=== PATIENT | male | born 1955 | race Caucasian/White ===

== ENCOUNTER 2024-11-18 07:52 | Inpatient (IN) ==
--- NOTE | 2024-11-18 08:23 | XRay Report ---
XR chest 1V portable CLINICAL HISTORY: neuro deficit, acute stroke suspected COMPARISON STUDY: None FINDINGS: There is mild cardiomegaly with pulmonary vascular congestion. Inspiration is shallow. Ther e is stranding opacity in the lung bases. No lobar consolidation, pleural effusion, or pneumothorax. IMPRESSION: 1. Mild CHF. 2. Likely atelectasis in the lung bases. Follow-up as clinically indicated. ACT 112: Negative or not required by law. Electronically signed by: Noah Mason M.D. 11/18/2024 8:22 AM
[2024-11-18 08:44] LABS: Alanine Aminotransferase 20 U/L (7-52); Albumin Globulin Ratio 1.5 (0.9-2); Albumin Level 4.6 gm/dl (3.4-5.0); Alkaline Phosphatase 98 U/L (34-104); Anion Gap 2 (3-11); Aspartate Aminotransferase 25 U/L (13-39); BUN Creatinine Ratio 19.1 (10-20); Bilirubin,Total 0.5 mg/dl (0.2-1.0); Blood Urea Nitrogen 25 mg/dl (6-23); Calcium 9.6 mg/dl (8.6-10.3); Carbon Dioxide 42 mmol/L (21-32); Chloride 101 mmol/L (98-107); Globulin 3.1 gm/dl (2.5-4.0); Glucose 182 mg/dl (70-99(Fasting)); Magnesium 2.4 mg/dl (1.7-2.4); Potassium 4.9 mmol/L (3.5-5.1); Sodium 145 mmol/L (136-145); Total Protein 7.7 gm/dl (6.0-8.3)
[2024-11-18 08:57] LABS: Thyroid Stimulating Hormone 2.402 uIu/ml (0.300-4.500); Troponin I High Sensitivity 62.1 pg/ml (0-20)
--- NOTE | 2024-11-18 09:22 | CT Scan Report ---
CT ANGIOGRAM OF THE CHEST CLINICAL HISTORY: Shortness of breath. Evaluate for pulmonary embolus. COMPARISON STUDY: Chest radiograph performed earlier today. TECHNIQUE: Following the IV administration of 112 cc of Optiray 320, CT angiogram of the chest was pe rformed from the upper abdomen to the thoracic inlet utilizing the pulmonary embolus protocol. Images are reviewed in the axial, sagittal, and coronal planes. 3-D MIPS images are created and assessed. I V contrast was administered without complication. A dose lowering technique was utilized adhering to the principles of ALARA. CT DOSE: 1391.34 mGy.cm FINDINGS: The tip of the endotracheal tube is 2.2 cm above the brenda. Tip of nasogastric tube is wit hin the distal body of the stomach. No pulmonary emboli are identified although segmental and subsegm ental pulmonary arteries are suboptimally assessed on this exam. There is no thoracic aortic dissecti on. The heart is moderately enlarged and there is moderate coronary artery calcification. No pericard ial effusion. No thoracic lymphadenopathy. There is no pneumothorax or pleural effusion. Extensive bi lateral lower lobe airspace opacities are greater on the right. There is associated volume loss. Ther e are also mild groundglass opacities within the upper lobes. Central airways are patent. Visualized portions of the upper abdomen are unremarkable IMPRESSION: 1. No pulmonary emboli identified although segmental and subsegmental pulmonary arteries suboptimally assessed. 2. Well-positioned endotracheal and nasogastric tubes. 3. Extensive bilateral lower lobe airspace opacities with volume loss which favor pneumonia/aspiratio n pneumonitis although atelectasis could appear similar. 4. Scattered groundglass opacities. These may represent pneumonia or alveolar pulmonary edema. 5. Moderate cardiomegaly and coronary artery calcification. ACT 112: Negative or not required by law. Electronically signed by: Fernandez Taylor M.D. 11/18/2024 9:20 AM
--- NOTE | 2024-11-18 09:29 | CT Scan Report ---
CT head/brain wo con CLINICAL HISTORY: 69 years-old Male with neuro deficit, acute stroke suspected. Acute stroke like sy mptoms TECHNIQUE: Multiple axial CT images of the head were obtained without contrast. A dose lowering tech nique was utilized adhering to the principles of ALARA. COMPARISON: None FINDINGS: No acute intracranial hemorrhage, midline shift, intracranial mass, hydrocephalus, territorial ischem ia or abnormal extra-axial collection. Involutional changes with mild ill-defined white matter hypode nsities The calvarium is intact. Indeterminate 10 mm lucent focus of the left parietal calvarium on image 27 series 3. Endotracheal tube with nasopharyngeal secretions. Moderate secretions within the nasal turb inates. 2.5 cm focus of polypoid mucosal thickening present within the dependent right maxillary sinu s. IMPRESSION: No acute intracranial abnormality identified. ACT 112: Negative or not required by law. The above report was generated using voice recognition software. It may contain grammatical, syntax o r spelling errors. Electronically signed by: Messi Burciaga M.D. 11/18/2024 9:27 AM
--- NOTE | 2024-11-18 09:31 | Critical Care Consultation ---
Date of Consultation November 18, 2024 Assessment & Plan (1) Acute metabolic encephalopathy: (2) Multifocal pneumonia: (3) Acute respiratory failure with hypoxia and hypercapnia: (4) Class 2 obesity without serious comorbidity with body mass index (BMI) of 38.0 to 38.9 in adult: (5) Smokeless tobacco use: (6) Prediabetes: (7) Dyslipidemia: Plan Reason Critically Ill: 69-year-old male was brought in by his mom to the hospital because of altered mental status. 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/OHS, prediabetes Neuro - [facility]: Unable to assess --Metabolic encephalopathy Likely secondary to hypercapnia TSH within normal limits Sodium, calcium, ammonia, blood sugar within normal limit CT head 11/18/2024: Negative for any acute intracranial abnormality Cardiac - 2D echo 11/18/2024: EF 55-60%, mild TR, borderline concentric LVH, RVSP 30-40 mmHg, grade 1 diastolic dysfunction -- Elevated troponin Likely type II WI Continue to trend EKG 11/18/2024 7:58 AM: Sinus tachycardia with PVCs, normal axis, no ST-T wave changes appreciated --Dyslipidemia Will benefit from a statin at home Respiratory - CTA chest 11/18/2024 personally reviewed: Motion degraded study Minimal centrilobular emphysema in the upper lobes Atelectasis appreciated bilateral lower lobes No pulmonary emboli Cardiomegaly No significant mediastinal lymphadenopathy -- VDRF Likely secondary to acute hypercapnic hypoxic respiratory failure Hypoxia is likely from multifocal lower lobe pneumonia Hypercapnia from probable ANA/OHS Continue with ventilatory support Keep RASS -1 Daily sedation holidays and SBT's Procalcitonin 0.05 Respiratory BioFire negative for everything --ANA/OHS Recommend outpatient polysomnography --Metabolic alkalosis Likely compensation to chronic respiratory acidosis GI - -- No acute issues RENAL/LYTES - -- JUAN A on CKD Monitor BUN/creatinine Avoid nephrotoxic medication ENDO - -- ICU hypoglycemia protocol HEME - -- Normocytic anemia Monitor H&H ID - -- Multifocal pneumonia Possible aspiration Procalcitonin 0.05, respiratory BioFire negative for everything on 11/18/2024 Nasal MRSA negative Follow-up sputum culture, continue with antibiotics --Prophylaxis VTE: Lovenox GI: Pepcid Lines: Peripheral Diet: N.p.o. Plan: Strict ins and outs Will give Zosyn and doxycycline for multifocal pneumonia Try to keep O2 saturation between 90-92% I do think patient is going to benefit from AVAPS machine on discharge given the severe hypercapnia Dedicated outpatient polysomnography. Follow-up sputum culture Patient's condition was discussed with patient's mother as well as sister at bedside Repeat ABG in a.m. I have personally spent 63 minutes of critical care time in the direct management of this patient. This is a life/limb threatening event. This includes time spent evaluating patient, direct bedside care, chart review, placing orders, interpretation of diagnostic studies, discussion with consultants, patient, and family members, as well as other required patient management activities. This time is exclusive of all separately billable procedures, and teaching time and separate from and in addition to any other critical care service time. History of Present Illness History of Present Illness 69-year-old male was brought in by his mom to the hospital because of altered mental status Past medical history: Obesity, probable ANA/OHS, prediabetes Patient was intubated in the ER and sent to the ICU for further management Patient was on 20 of propofol at the time of examination he was breathing with the vent. His initial respiratory rate was 22 his repeat ABG showed that he was alkalotic Respirate was decreased to 18 and I decreased it to 15. His saturation was 99% on 50% FiO2, I went down to 40%. Patient's sister as well as mother were in the room. History was obtained from them as well as the previous chart Patient has not been doing well since her last 3-4 days. He was getting more drowsy during the day and dozing off very easily. No subjective fever or chills as per the mother. No dysuria or diarrhea No unusual headache or blurry vision. Social history: Lifetime non-smoker, does chew tobacco. Allergies Allergy/AdvReac Type Severity Reaction Status Date / Time No Known Allergies Allergy Unverified 11/18/24 06:57 Home Medications Medication Instructions Recorded Confirmed Type No Known Home Medications 09/10/24 11/18/24 History Patient History Medical History Subconjunctival hemorrhage Surgical History S/P lymph node biopsy S/P hernia repair Family History (Updated 11/18/24 @ 11:07 by Kirk Gray MD) Mother Diabetes Breast cancer Lymphoma Sister Diabetes Father Thyroid condition Coronary heart disease Denies family history of Ovarian cancer Prostate cancer Myocardial infarction Colorectal cancer Social History (Updated 11/18/24 @ 11:08 by Kirk Gray MD) Smoking Status: Unknown if ever smoked Tobacco Type: Smokeless Tobacco (Dip or Chew) Age Started Using Tobacco: 25; Second Hand Exposure: No; Do You Dip or Chew Tobacco: Yes; Hx Alcohol Use: No Hx Substance Use: No Preferred Language: Macedonian Communication Ability: Effective Visual Impairment: No Limitations Hearing Ability: Normal Handkerchief Presser Required: No Beliefs That Will Affect Care: None marital status: Single Current Living Situation: Parent Current Living Situation Comment: lives with mother current occupational status: other 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 [employer], 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 [employer] How many Children do You have: 0 Feels Safe at Home: Yes and Hesitant to Answer Childhood Exposure to Second-Hand Smoke: Yes Diet: regular Dental Care, Regularly: No Physical Activity Frequency: Does not Exercise Seatbelt Use: always Sunscreen Use: No Assistive Devices: Glasses Review of Systems 2 Review of Systems: All systems reviewed & are unremarkable except as noted in HPI & below Physical Exam 2 Physical Exam: Constitutional: No acute distress HEENT: Sluggish pupillary response bilaterally Respiratory system: Decreased air entry bilaterally, no wheeze, no rhonchi, positive crackles bilateral lower lobe CVS: S1-S2 positive, no murmurs or gallops Abdomen: Soft, nontender, nondistended, positive bowel sounds x4, obese Extremities: +2 pulses bilaterally radialis/ dorsalis pedis, no cyanosis, minimal pitting edema bilateral lower extremity Neuro: Sedated, breathing with vent, moving extremities to pain Psych: Unable to assess G/U: Positive Carrion Skin: no rashes, warm and dry Lymphatic: no cervical or axillary lymphadenopathy Results & Data Results & Data Vital Signs (Past 12 Hours) Vital Signs Temp Pulse Resp BP Pulse Ox 11/18/24 09:00 104 H 26 H 100 11/18/24 08:35 187/123 H 11/18/24 08:33 124 H 26 H 100 11/18/24 08:30 135 H 26 H 100 11/18/24 08:30 176/122 H 11/18/24 08:27 135 H 28 H 100 11/18/24 08:25 124/82 11/18/24 08:15 195/101 H 11/18/24 08:12 110 H 98 11/18/24 08:05 174/94 H 11/18/24 08:03 110 H 96 11/18/24 08:00 171/87 H 11/18/24 08:00 171/87 H 11/18/24 08:00 109 H 94 11/18/24 07:54 37 C Laboratory Results 11/18/24 08:09 11/18/24 08:09 Coding Level of Care Code 40161 CRITICAL CARE 1ST 30-74M Diagnoses Acute metabolic encephalopathy G93.41 Multifocal pneumonia J18.9 Acute respiratory failure with hypoxia and hypercapnia J96.01; J96.02 Class 2 obesity without serious comorbidity with body mass index (BMI) of 38.0 to 38.9 in adult E66.9; Z68.38 Smokeless tobacco use Z72.0 Prediabetes R73.03 Dyslipidemia E78.5
--- NOTE | 2024-11-18 09:37 | Emergency Department Note ---
History of Present Illness General Chief complaint: Respiratory Distress Stated complaint: RESP. DISTRESS Time Seen by Provider: 11/18/24 07:59 Source: EMS Mode of arrival: EMS Limitations: clinical acuity History of Present Illness Patient is a 69-year-old male who presents from primary care office in acute respiratory distress. According to EMS oxygen level was 40% on room air when they arrived. Patient was placed on a nonrebreather with minimal improvement to 60 to 70%. Patient was following commands per EMS however currently he is not responding to painful stimuli. Blood glucose level within normal limits. Unknown last known well. No reported trauma or head injury. Home Medications Medication Instructions Recorded Confirmed Type No Known Home Medications 09/10/24 11/18/24 History Allergies Allergy/AdvReac Type Severity Reaction Status Date / Time No Known Allergies Allergy Unverified 11/18/24 06:57 Past Med/Surg History Problem List (Updated 11/18/24 @ 09:48 by Oli Singh MD) Acute hypercapnic respiratory failure (Acute) Class 2 obesity without serious comorbidity with body mass index (BMI) of 38.0 to 38.9 in adult Smokeless tobacco use Prediabetes Medical History (Updated 11/18/24 @ 09:48 by Oli Singh MD) Subconjunctival hemorrhage Surgical History S/P lymph node biopsy S/P hernia repair Family History Mother Diabetes Breast cancer Sister Diabetes Father Thyroid condition Coronary heart disease Denies family history of Ovarian cancer Prostate cancer Myocardial infarction Colorectal cancer Social History (Updated 09/10/24 @ 08:53 by CARLOS A Barrett) Smoking Status: Unknown if ever smoked Tobacco Type: Smokeless Tobacco (Dip or Chew) Age Started Using Tobacco: 25; Second Hand Exposure: No; Do You Dip or Chew Tobacco: Yes (can lasts 1-3 days, has cut back); Hx Alcohol Use: No Hx Substance Use: No Preferred Language: French Communication Ability: Effective Visual Impairment: No Limitations Hearing Ability: Normal User Experience Designer Required: No marital status: Single Current Living Situation: Family current occupational status: employed and retired 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 [employer] Feels Safe at Home: Yes and Hesitant to Answer Childhood Exposure to Second-Hand Smoke: Yes Diet: regular Dental Care, Regularly: No Physical Activity Frequency: Does not Exercise Seatbelt Use: always Sunscreen Use: No Assistive Devices: Glasses Review of Systems Unable to obtain ROS secondary to decreased LOC Physical Exam Vital Signs Vital Signs - 24 hr 11/18/24 07:54 11/18/24 08:00 11/18/24 08:00 Temperature 37 C Temperature Source Oral Pulse Rate 109 H Pulse Rate from SpO2 Sensor 109 H Respiratory Rate Respiratory Effort / Characteristics Respiratory Depth Respiratory Pattern Blood Pressure 171/87 H Blood Pressure Mean 130 Pulse Oximetry 94 Fraction of Inspired Oxygen Sepsis Recent Fever Within 48 Hours Yes Sepsis New/Unexplained Change in Mental Status Yes Sepsis Action Taken by Nursing No Action Required End-Tidal CO2 11/18/24 08:00 11/18/24 08:03 11/18/24 08:05 Temperature Temperature Source Pulse Rate 110 H Pulse Rate from SpO2 Sensor 111 H Respiratory Rate Respiratory Effort / Characteristics Respiratory Depth Respiratory Pattern Blood Pressure 171/87 H 174/94 H Blood Pressure Mean 130 133 Pulse Oximetry 96 Fraction of Inspired Oxygen Sepsis Recent Fever Within 48 Hours Sepsis New/Unexplained Change in Mental Status Sepsis Action Taken by Nursing End-Tidal CO2 11/18/24 08:12 11/18/24 08:15 11/18/24 08:25 Temperature Temperature Source Pulse Rate 110 H Pulse Rate from SpO2 Sensor 111 H Respiratory Rate Respiratory Effort / Characteristics Respiratory Depth Respiratory Pattern Blood Pressure 195/101 H 124/82 Blood Pressure Mean 141 101 Pulse Oximetry 98 Fraction of Inspired Oxygen Sepsis Recent Fever Within 48 Hours Sepsis New/Unexplained Change in Mental Status Sepsis Action Taken by Nursing End-Tidal CO2 11/18/24 08:27 11/18/24 08:30 11/18/24 08:30 Temperature Temperature Source Pulse Rate 135 H 135 H Pulse Rate from SpO2 Sensor 135 H 134 H Respiratory Rate 28 H 26 H Respiratory Effort / Characteristics Respiratory Depth Respiratory Pattern Blood Pressure 176/122 H Blood Pressure Mean 135 Pulse Oximetry 100 100 Fraction of Inspired Oxygen Sepsis Recent Fever Within 48 Hours Sepsis New/Unexplained Change in Mental Status Sepsis Action Taken by Nursing End-Tidal CO2 59 56 11/18/24 08:33 11/18/24 08:35 11/18/24 09:00 Temperature Temperature Source Pulse Rate 124 H 104 H Pulse Rate from SpO2 Sensor 125 H 104 H Respiratory Rate 26 H 26 H Respiratory Effort / Characteristics Respiratory Depth Respiratory Pattern Blood Pressure 187/123 H Blood Pressure Mean 139 Pulse Oximetry 100 100 Fraction of Inspired Oxygen Sepsis Recent Fever Within 48 Hours Sepsis New/Unexplained Change in Mental Status Sepsis Action Taken by Nursing End-Tidal CO2 52 42 11/18/24 09:16 11/18/24 09:34 Temperature Temperature Source Pulse Rate Pulse Rate from SpO2 Sensor Respiratory Rate Respiratory Effort / Characteristics Non-Labored Spontaneous Respiratory Depth Normal Respiratory Pattern Regular Blood Pressure Blood Pressure Mean Pulse Oximetry Fraction of Inspired Oxygen 100 Sepsis Recent Fever Within 48 Hours Sepsis New/Unexplained Change in Mental Status Sepsis Action Taken by Nursing End-Tidal CO2 See below Constitutional WD/WN, vitals as above Eyes PERRL, conjunctivae normal, anicteric sclerae ENMT external ear and nose normal, oropharynx normal Neck trachea midline, no thyromegaly Respiratory Bradypnea with shallow respirations, decreased air movement throughout all lung yang Cardiovascular RRR, no murmur, no edema Skin no rashes, warm and dry Neurologic GCS 6 Procedures Intubation Time out performed: Yes sedative: Etomidate Mg Given: 30 paralytic: Rocuronium Mg Given: 100 Laryngoscope: fiber optic video scope ET Tube Size: 7.5 ET Tube Uncuffed: Yes Tube Secured Location: lips Tube Placement Confirmation: visualized tube passing through cords Patient Tolerated Procedure: no complications Intubation Complications: none Course Administered Medications Propofol (Diprivan) 1,000 mg in 100 mls @ 14.592 mls/hr IV .[id number] [facility]; Protocol Stop: 11/21/24 08:29 Last Admin: 11/18/24 09:30 Dose: 20 mcg/kg/min, 14.6 mls/hr Documented By: JAMEY Co-signed By: NA Discontinued Medications Ioversol (Optiray 320 125ml) 112 ml IV ONCE ONE Stop: 11/18/24 08:40 Last Admin: 11/18/24 08:39 Dose: 112 ml Documented By: MYCHAL Miscellaneous (Rapid Sequence Induction Bag) Confirm Administered Dose 1 each N/A .STK-MED ONE Stop: 11/18/24 07:52 Last Admin: 11/18/24 08:26 Dose: 1 each Documented By: JAMEY Critical Care Time Critical Care Time: Yes Total Critical Care Time: 40 Medical Decision Making Differential Diagnosis Severe hypercapnia, metabolic encephalopathy, toxidrome, intracranial abnormality Medical Records Attestation: I reviewed the patient's medical records. Home Medications Current Medication List: was personally reviewed by me Laboratory Data Attestation: I reviewed the patient's lab results. 11/18/24 09:18 11/18/24 08:09 Lab Results 11/18/24 11/18/24 11/18/24 Range/Units 08:08 08:09 08:13 WBC Cancelled RBC Cancelled Hgb Cancelled Hct Cancelled MCV Cancelled MCH Cancelled MCHC Cancelled RDW Std Deviation Cancelled RDW Coeff of Ethel Cancelled Plt Count Cancelled MPV Cancelled Immature Gran % (Auto) Cancelled Neut % (Auto) Cancelled Lymph % (Auto) Cancelled [place] % (Auto) Cancelled Eos % (Auto) Cancelled Baso % (Auto) Cancelled Neut # (Auto) Cancelled Lymph # (Auto) Cancelled [place] # (Auto) Cancelled Eos # (Auto) Cancelled Baso # (Auto) Cancelled Immature Gran # (Auto) Cancelled Absolute Nucleated RBC Cancelled Nucleated RBC % (auto) Cancelled Neutrophils % (Manual) Cancelled Band Neutrophils % Cancelled Lymphocytes % (Manual) Cancelled Prolymphocyte % Cancelled Reactive Lymphs % (Man) Cancelled Monocytes % (Manual) Cancelled Eosinophils % (Manual) Cancelled Basophils % (Manual) Cancelled Metamyelocytes % (Man) Cancelled Myelocytes % (Man) Cancelled Promyelocytes % (Man) Cancelled Blast Cells % (Manual) Cancelled Plasma Cell % (Manual) Cancelled Other Cells % Cancelled Nucleated RBC % Cancelled Neutrophils # (Manual) Cancelled Band Neutrophils # Cancelled Total Absolute Neuts Cancelled Lymphocytes # (Manual) Cancelled Prolymphocyte # Cancelled Reactive Lymphs # Cancelled Total Abs Lymphocytes Cancelled Monocytes # (Manual) Cancelled Eosinophils # (Manual) Cancelled Basophils # (Manual) Cancelled Metamyelocytes # (Man) Cancelled Myelocytes # (Manual) Cancelled Promyelocytes # (Man) Cancelled Blast Cells # (Man) Cancelled Plasma Cell # (Manual) Cancelled Other Cells # Cancelled Nucleated RBCs # (Man) Cancelled Hypersegmented Neuts Cancelled Hyposegmented Neuts Cancelled Hypogranular Neuts Cancelled Large Granular Lymphs Cancelled # Lrg Granular Lymphs Cancelled Hairy Cells Cancelled Smudge Cells Cancelled Toxic Granulation Cancelled Toxic Vacuolation Cancelled Dohle Bodies Cancelled Fan Rods Cancelled Platelet Estimate Cancelled Hypogranular Platelets Cancelled Giant Platelets Cancelled Platelet Satelliting Cancelled RBC Morphology Cancelled Polychromasia Cancelled Hypochromasia Cancelled Poikilocytosis Cancelled Basophilic Stippling Cancelled Anisocytosis Cancelled Microcytosis Cancelled Macrocytosis Cancelled Spherocytes Cancelled Pappenheimer Bodies Cancelled Sickle Cells Cancelled Target Cells Cancelled Tear Drop Cells Cancelled Ovalocytes Cancelled Stomatocytes Cancelled Plasencia-Peggs Bodies Cancelled Echinocytes Cancelled Acanthocytes (Spur) Cancelled Rouleaux Cancelled RBC Agglutinates Cancelled Schistocytes Cancelled Sezary Cell Cancelled PT Cancelled INR Cancelled APTT Cancelled PTT Ratio Cancelled Sodium 145 (136-145) mmol/L Potassium 4.9 (3.5-5.1) mmol/L Chloride 101 (98-107) mmol/L Carbon Dioxide 42 H* (21-32) mmol/L Anion Gap 2 L (3-11) BUN 25 H (6-23) mg/dl Creatinine 1.31 (0.6-1.4) mg/dl Est Cr Clr Drug Dosing Not Reportable eGFR 59.66 BUN/Creatinine Ratio 19.1 (10-20) Glucose 182 H (70-99(Fasting)) mg/dl Lactate 1.0 (0.4-2.0) mmol/L Calcium 9.6 (8.6-10.3) mg/dl Magnesium 2.4 (1.7-2.4) mg/dl Total Bilirubin 0.5 (0.2-1.0) mg/dl AST 25 (13-39) U/L ALT 20 (7-52) U/L Alkaline Phosphatase 98 (34-104) U/L Troponin I High Sens 62.1 H* (0-20) pg/ml Total Protein 7.7 (6.0-8.3) gm/dl Albumin 4.6 (3.4-5.0) gm/dl Globulin 3.1 (2.5-4.0) gm/dl Albumin/Globulin Ratio 1.5 (0.9-2) TSH 2.402 (0.300-4.500) uIu/ml Blood Parasites ID Cancelled Blood Type O Negative Antibody Screen NEGATIVE Imaging Data Attestation: I personally reviewed and interpreted this imaging study as follows: My Impression: No acute cardiopulmonary process noted, poor inspiratory effort Radiologist's Impression: Chest X-Ray 11/18/24 08:02 XR chest 1V portable CLINICAL HISTORY: neuro deficit, acute stroke suspected COMPARISON STUDY: None FINDINGS: There is mild cardiomegaly with pulmonary vascular congestion. Inspiration is shallow. There is stranding opacity in the lung bases. No lobar consolidation, pleural effusion, or pneumothorax. IMPRESSION: 1. Mild CHF. 2. Likely atelectasis in the lung bases. Follow-up as clinically indicated. ACT 112: Negative or not required by law. Electronically signed by: Noah Mason M.D. 11/18/2024 8:[address] 11/18/24 08:02 CT head/brain wo con CLINICAL HISTORY: 69 years-old Male with neuro deficit, acute stroke suspected. Acute stroke like symptoms TECHNIQUE: Multiple axial CT images of the head were obtained without contrast. A dose lowering technique was utilized adhering to the principles of ALARA. COMPARISON: None FINDINGS: No acute intracranial hemorrhage, midline shift, intracranial mass, hydrocephalus, territorial ischemia or abnormal extra-axial collection. Involutional changes with mild ill-defined white matter hypodensities The calvarium is intact. Indeterminate 10 mm lucent focus of the left parietal calvarium on image 27 series 3. Endotracheal tube with nasopharyngeal secretions. Moderate secretions within the nasal turbinates. 2.5 cm focus of polypoid mucosal thickening present within the dependent right maxillary sinus. IMPRESSION: No acute intracranial abnormality identified. ACT 112: Negative or not required by law. The above report was generated using voice recognition software. It may contain grammatical, syntax or spelling errors. Electronically signed by: Messi Burciaga M.D. 11/18/2024 9:27 AM Chest CTA 11/18/24 08:20 CT ANGIOGRAM OF THE CHEST CLINICAL HISTORY: Shortness of breath. Evaluate for pulmonary embolus. COMPARISON STUDY: Chest radiograph performed earlier today. TECHNIQUE: Following the IV administration of 112 cc of Optiray 320, CT angiogram of the chest was performed from the upper abdomen to the thoracic inlet utilizing the pulmonary embolus protocol. Images are reviewed in the axial, sagittal, and coronal planes. 3-D MIPS images are created and assessed. IV contrast was administered without complication. A dose lowering technique was utilized adhering to the principles of ALARA. CT DOSE: 1391.34 mGy.cm FINDINGS: The tip of the endotracheal tube is 2.2 cm above the brenda. Tip of nasogastric tube is within the distal body of the stomach. No pulmonary emboli are identified although segmental and subsegmental pulmonary arteries are suboptimally assessed on this exam. There is no thoracic aortic dissection. The heart is moderately enlarged and there is moderate coronary artery calcification. No pericardial effusion. No thoracic lymphadenopathy. There is no pneumothorax or pleural effusion. Extensive bilateral lower lobe airspace opacities are greater on the right. There is associated volume loss. There are also mild groundglass opacities within the upper lobes. Central airways are patent. Visualized portions of the upper abdomen are unremarkable IMPRESSION: 1. No pulmonary emboli identified although segmental and subsegmental pulmonary arteries suboptimally assessed. 2. Well-positioned endotracheal and nasogastric tubes. 3. Extensive bilateral lower lobe airspace opacities with volume loss which favor pneumonia/aspiration pneumonitis although atelectasis could appear similar. 4. Scattered groundglass opacities. These may represent pneumonia or alveolar pulmonary edema. 5. Moderate cardiomegaly and coronary artery calcification. ACT 112: Negative or not required by law. Electronically signed by: Fernandez Taylor M.D. 11/18/2024 9:20 AM ECG Data Attestation: I personally reviewed and interpreted this ECG as follows: Indication: + SOB/dyspnea Rate (beats per minute): 110 Rhythm: + sinus tachycardia ECG Intervals/blocks: + Normal QRS, + Normal QT and + Normal [place] ECG [place]: + Normal ECG ST segments: + Normal ST segments ECG Findings: + PVCs Comparison ECG Date: no prior available Blood Pressure Blood Pressure Findings: Elevated blood pressure Blood Pressure Disposition: elevated BP felt to be situational MDM Narrative Patient is a 69-year-old male presents in acute respiratory distress with decreased LOC. Patient was transitioned to BiPAP immediately on arrival. GCS of 6. Plans for intubation based on mental status and respiratory failure. No reported head trauma or neurodeficits per EMS prior to arrival. Patient was intubated at bedside for respiratory failure. See intubation note for further details. CO2 on initial ABG was greater than 130 with a pH of around 7.0 consistent with patient's clinical picture. Respiratory rate was adjusted to help with hypercapnia. CT of the head was nonconcerning for acute intracranial trauma and based on clinical picture of severe hypercapnia have low suspicion for neurologic cause of patient's decreased LOC. He did start to have some nonpurposeful movements while intubated which is improvement from arrival. Patient was started on propofol for sedation. IV antibiotics were given to cover for possible pneumonia. Carbon dioxide level on BMP of 42 consistent with his acute on chronic respiratory acidosis. Troponin slightly elevated likely secondary to demand. CTA was ordered without evidence of pulmonary embolism. No ischemic changes noted on EKG. Spoke with Dr. Wick with critical care who accepted the patient for admission. Impression & Plan Acute hypercapnic respiratory failure Discharge Plan Visit Data Chief Complaint: Respiratory Distress Stated Complaint: RESP. DISTRESS ED Provider: Oli Singh Discharge Problem: Acute hypercapnic respiratory failure Patient Disposition: Admitted As Inpatient Condition: Critical Forms Stand Alone Forms: My [facility] [employer] Prescriptions Prescriptions: No Action No Known Home Medications Referrals Referrals: Kenton Nevarez, [Primary Care Provider] -
[2024-11-18 09:42] LABS: Basophils # (auto) 0.02 K/uL (0.00-0.20); Basophils % (auto) 0.3 %; Hematocrit (blood only) 44.9 % (42.0-52.0); Hemoglobin 13.9 g/dl (14.0-18.0); Immature Granulocytes # (auto) 0.03 K/uL (0.01-0.20); Immature Granulocytes % (auto) 0.4 %; Lymphocytes # (auto) 0.47 K/uL (1.20-3.40); Lymphocytes % (auto) 6.3 %; Mean Corpuscular Volume 96.8 fL (80.0-100.0); Mean Platelet Volume 9.3 fL (9.4-12.4); Monocytes # (auto) 0.44 K/uL (0.11-0.59); Monocytes % (auto) 5.9 %; Neutrophils # (auto) 6.51 K/uL (1.40-6.50); Neutrophils % (auto) 87.1 %; Platelet Count 139 K/uL (130-400); RDW Coefficient of Variation 13.6 % (11.5-14.5); RDW Standard Deviation 47.8 fL (36.4-46.3); Red Blood Count 4.64 M/uL (4.70-6.10); White Blood Count 7.47 K/ul (4.8-10.8)
--- NOTE | 2024-11-18 10:03 | History & Physical Report ---
Date of Service November 18, 2024 Assessment & Plan (1) Acute respiratory failure with hypoxia and hypercapnia: (2) Pneumonia: (3) Acute metabolic encephalopathy: (4) Prediabetes: (5) Smokeless tobacco use: (6) Morbid obesity: (7) Elevated troponin: (8) Proteinuria: (9) Sleep disorder breathing: Plan 69yo male with history of morbid obesity, pre-DM, and smokeless tobacco use who presents from his PCP's office with severely altered mental status, severe hypoxia, and cough/dyspnea. Amazingly he was able to ambulate into his PCP's office this morning. EMS was summoned to the [facility] offices when the severe hypoxia was found. EMS placed him on 100% nonrebreather mask and transported him to our ER. Upon arrival here his GCS was <7 and and PCO2 on ABG was >135. He was subsequently intubated by the ER attending, Dr Singh. #acute hypoxic & hypercapnic respiratory failure - -suspect he has baseline chronic hypercapnia from untreated/undiagnosed ANA/OHS; can't rule out narcolepsy based on his mother's history -acute respiratory failure likely due to bilateral lower lobe pneumonia -no evidence of PE on CTA chest -no clinical or radiographic evidence of CHF -no evidence of acute bronchitis -appreciate respiratory therapy support & ICU attending support -defer vent management to ICU attending -enteric tube for gastric decompression -s/p cefepime/vanco in the ER; also added doxycycline for atypical coverage -will defer to ICU attending selection of ongoing antibiotics -send blood cx's x 2 sets -Respiratory BioFire fully negative -repeat ABG in ER shows respiratory alkalosis with significantly improved pCO2 (now <50) -rate on vent decreased from 26 -->18 -propofol for now for sedation -if any hypotension 2nd to such add low-dose levophed -once extubated he will need ongoing BIPAP with sleep #bilateral pneumonia - -no risk factors for gram negative etiology -no recent vomiting or dysphagia to suggest aspiration -during his intubation no foodstuffs, etc were seen in the airway -cefepime/vanco/doxycycline given in ER -if MRSA swab is negative can defer ongoing MRSA coverage -defer to ICU attending selection of ongoing abx -follow blood cx's -respiratory BioFire negative -send legionella urine ag #acute metabolic encephalopathy - -2nd to severe hypoxia and hypercapnia -check ammonia level to be complete -TSH wnl -CT head negative for acute process -tox screen pending -serial exams -given that he & his mother live [place] area will check lyme screen, anaplasmosis screen, and babesia screen to be complete #suspected ANA/sleep-disordered breathing - -highly suspected -will need 2-step later in his stay as well as potential for trying to get him qualified for BIPAP or AVAPS given the severity of his presentation -will need formal sleep study as outpatient and potentially even a 2-day study to r/o narcolepsy #morbid obesity, BMI ~40 #prediabetes - -hemoglobin a1c 6.3% in August 2024 -BSG checks per ICU protocol -check another a1c while here #elevated troponin - -likely myocardial demand ischemia in setting of his respiratory failure/pneumonia -will trend until peak is seen -will obtain echo to check LV function, RV function, PA pressures, etc. given his +troponin, coronary artery calcifications, and cardiomegaly -EKG without any ischemic changes and no reported ischemic symptoms at home #proteinuria - -3+ protein on u/a -at minimum would repeat this later in the stay or shortly after discharge; consider checking microalbumin/creatinine ratio with it as well #smokeless tobacco use - -nicoderm patch 14mg/24hr #DVT proph - -lovenox 40mg BID given his weight/morbid obesity pt's mother updated throughout the admissions process she does not know her son's wishes for code status, but given she is next of kin she asks for full code status at this time History of Present Illness Chief Complaint: altered mental status, hypoxia Primary Care Provider: Kenton Nevarez, DO 69yo male with history of morbid obesity, pre-DM, and smokeless tobacco use who presents from his PCP's office with severely altered mental status, severe hypoxia (conflicting reports but O2 sats were as low as 37%-50% range), and cough/dyspnea. Amazingly he was able to ambulate into his PCP's office this morning. EMS was summoned to the [facility] offices when the severe hypoxia was found. EMS placed him on 100% nonrebreather mask and transported him to our ER. Upon arrival here his GCS was <7 and and PCO2 on ABG was >135. He was subsequently intubated by the ER attending, Dr Singh. During my admission assessment the patient's mother was at bedside. The patient lives with his mother in the [facility]. Initially she told me he had had a cough for just a few days, but the written record mentions up to 2 weeks of cough. He has had dyspnea. His mother's main observation over the last month is that of him falling asleep easily. In fact they were at a a few weeks back and he fell asleep during the service. He has been sleeping excessively both day and night. When he is awake he has tendencies to fall asleep quickly. Pt's mother denies any recent fevers, headaches, vomiting, diarrhea, chest pain, abd pain, LE edema, tick bites (although they [place] area and he does go out [place] the [place] at times). He is not on oxygen or CPAP/BIPAP at home. Appetite has been normal per his mother. He does not use cigarettes. Allergies Allergy/AdvReac Type Severity Reaction Status Date / Time No Known Allergies Allergy Unverified 11/18/24 06:57 Home Medications Medication Instructions Recorded Confirmed Type No Known Home Medications 09/10/24 11/18/24 History Past Med/Surg History Problem List (Updated 11/18/24 @ 17:00 by Liana Wick MD, [facility]) Dyslipidemia Multifocal pneumonia Sleep disorder breathing Proteinuria Elevated troponin Morbid obesity Acute metabolic encephalopathy Pneumonia Acute respiratory failure with hypoxia and hypercapnia Acute hypercapnic respiratory failure (Acute) Class 2 obesity without serious comorbidity with body mass index (BMI) of 38.0 to 38.9 in adult Smokeless tobacco use Prediabetes Medical History Subconjunctival hemorrhage Surgical History S/P lymph node biopsy S/P hernia repair Family History (Updated 11/18/24 @ 11:07 by Kirk Gray MD) Mother Diabetes Breast cancer Lymphoma Sister Diabetes Father Thyroid condition Coronary heart disease Denies family history of Ovarian cancer Prostate cancer Myocardial infarction Colorectal cancer Social History (Updated 11/18/24 @ 11:08 by Kirk Gray MD) Smoking Status: Unknown if ever smoked Tobacco Type: Smokeless Tobacco (Dip or Chew) Age Started Using Tobacco: 25; Second Hand Exposure: No; Do You Dip or Chew Tobacco: Yes; Hx Alcohol Use: No Hx Substance Use: No Preferred Language: Pakistani Communication Ability: Effective Visual Impairment: No Limitations Hearing Ability: Normal Layup Worker Required: No Beliefs That Will Affect Care: None marital status: Single Current Living Situation: Parent Current Living Situation Comment: lives with mother current occupational status: other 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, 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 [employer] How many Children do You have: 0 Feels Safe at Home: Yes and Hesitant to Answer Childhood Exposure to Second-Hand Smoke: Yes Diet: regular Dental Care, Regularly: No Physical Activity Frequency: Does not Exercise Seatbelt Use: always Sunscreen Use: No Assistive Devices: Glasses Review of Systems Review of Systems: Unobtainable due to cognitive status, Unobtainable due to endotracheal tube and Unobtainable due to reduced consciousness all history/ROS obtained by the patient's mother gen - no fevers, no appetite loss HENT - ?URI symptoms, no dysphagia CV - no chest pain pulm - cough, dyspnea; mother uncertain if he snores GI - no vomiting or diarrhea neuro - no falls; no headaches skin - no rashes Physical Exam Physical Exam: gen - morbidly obese, intubated/sedated eyes - PERRL, each pupil about 2mm in size; slight lid lag/proptosis HENT - Tms obscured by cerumen; mouth - ETT, enteric tube in place; MMM neck - no obvious JVD; no lymph nodes; no obvious thyroid mass heart - RRR, s1 s2, no murmur lungs - decreased BS both bases with mild rales; no wheezes; good airation abd - protuberant, no HSM, soft, BS+, no mass ext - cool to touch, venous stasis changes b/l shins and feet; pulses b/l feet 1-2+ musculo - no signs of trauma; no joint effusions upper or lower exts neuro - myoclonic type jerks noted of arms/legs; unable to assess for motor response; ?slight asymmetry in muscle tone RLE vs the LLE (slightly increased tone on right leg vs the left leg); DTRs 2+ b/l arms, 1+ patellar skin - no generalized rash; stasis changes b/l shins Results & Data Results & Data Vital Signs (Past 12 Hours) Vital Signs Temp Pulse Resp BP Pulse Ox FiO2 11/18/24 09:37 108 H 26 H 98 40 11/18/24 09:00 104 H 26 H 100 11/18/24 08:35 187/123 H 11/18/24 08:33 124 H 26 H 100 11/18/24 08:30 135 H 26 H 100 11/18/24 08:30 176/122 H 11/18/24 08:27 135 H 28 H 100 11/18/24 08:25 124/82 11/18/24 08:15 195/101 H 11/18/24 08:12 110 H 98 11/18/24 08:05 174/94 H 11/18/24 08:03 110 H 96 11/18/24 08:00 100 11/18/24 08:00 171/87 H 11/18/24 08:00 171/87 H 11/18/24 08:00 109 H 94 11/18/24 07:54 37 C Laboratory Results Laboratory Results - last 24 hr 11/18/24 11/18/24 11/18/24 08:08 08:09 08:11 WBC Cancelled RBC Cancelled Hgb Cancelled POC Hgb 16.0 Hct Cancelled POC Hct 47 MCV Cancelled MCH Cancelled MCHC Cancelled RDW Std Deviation Cancelled RDW Coeff of Ethel Cancelled Plt Count Cancelled MPV Cancelled Immature Gran % (Auto) Cancelled Neut % (Auto) Cancelled Lymph % (Auto) Cancelled [place] % (Auto) Cancelled Eos % (Auto) Cancelled Baso % (Auto) Cancelled Neut # (Auto) Cancelled Lymph # (Auto) Cancelled [place] # (Auto) Cancelled Eos # (Auto) Cancelled Baso # (Auto) Cancelled Immature Gran # (Auto) Cancelled Absolute Nucleated RBC Cancelled Nucleated RBC % (auto) Cancelled Neutrophils % (Manual) Cancelled Band Neutrophils % Cancelled Lymphocytes % (Manual) Cancelled Prolymphocyte % Cancelled Reactive Lymphs % (Man) Cancelled Monocytes % (Manual) Cancelled Eosinophils % (Manual) Cancelled Basophils % (Manual) Cancelled Metamyelocytes % (Man) Cancelled Myelocytes % (Man) Cancelled Promyelocytes % (Man) Cancelled Blast Cells % (Manual) Cancelled Plasma Cell % (Manual) Cancelled Other Cells % Cancelled Nucleated RBC % Cancelled Neutrophils # (Manual) Cancelled Band Neutrophils # Cancelled Total Absolute Neuts Cancelled Lymphocytes # (Manual) Cancelled Prolymphocyte # Cancelled Reactive Lymphs # Cancelled Total Abs Lymphocytes Cancelled Monocytes # (Manual) Cancelled Eosinophils # (Manual) Cancelled Basophils # (Manual) Cancelled Metamyelocytes # (Man) Cancelled Myelocytes # (Manual) Cancelled Promyelocytes # (Man) Cancelled Blast Cells # (Man) Cancelled Plasma Cell # (Manual) Cancelled Other Cells # Cancelled Nucleated RBCs # (Man) Cancelled Hypersegmented Neuts Cancelled Hyposegmented Neuts Cancelled Hypogranular Neuts Cancelled Large Granular Lymphs Cancelled # Lrg Granular Lymphs Cancelled Hairy Cells Cancelled Smudge Cells Cancelled Toxic Granulation Cancelled Toxic Vacuolation Cancelled Dohle Bodies Cancelled Fan Rods Cancelled Platelet Estimate Cancelled Hypogranular Platelets Cancelled Giant Platelets Cancelled Platelet Satelliting Cancelled RBC Morphology Cancelled Polychromasia Cancelled Hypochromasia Cancelled Poikilocytosis Cancelled Basophilic Stippling Cancelled Anisocytosis Cancelled Microcytosis Cancelled Macrocytosis Cancelled Spherocytes Cancelled Pappenheimer Bodies Cancelled Sickle Cells Cancelled Target Cells Cancelled Tear Drop Cells Cancelled Ovalocytes Cancelled Stomatocytes Cancelled Plas[place] Bodies Cancelled Echinocytes Cancelled Acanthocytes (Spur) Cancelled Rouleaux Cancelled RBC Agglutinates Cancelled Schistocytes Cancelled Sezary Cell Cancelled PT Cancelled INR Cancelled APTT Cancelled PTT Ratio Cancelled Specimen Type Arterial POC pH 7.09 L* POC pCO2 > 130 H POC pO2 121 H POC HCO3 TNP POC Total CO2 TNP POC Base Excess TNP POC ABG O2 Sat TNP POC Sodium 144 Sodium 145 POC Potassium 4.4 Potassium 4.9 Chloride 101 Carbon Dioxide 42 H* Anion Gap 2 L BUN 25 H Creatinine 1.31 Est Cr Clr Drug Dosing Not Reportable eGFR 59.66 BUN/Creatinine Ratio 19.1 Glucose 182 H Lactate Calcium 9.6 Magnesium 2.4 Total Bilirubin 0.5 AST 25 ALT 20 Alkaline Phosphatase 98 Ammonia Troponin I High Sens 62.1 H* B-Natriuretic Peptide Total Protein 7.7 Albumin 4.6 Globulin 3.1 Albumin/Globulin Ratio 1.5 Procalcitonin 0.05 TSH 2.402 Urine Color Urine Appearance Urine pH Ur Specific [place] Urine Protein Urine Glucose (UA) Urine Ketones Urine Blood Urine Nitrite Urine Bilirubin Urine Urobilinogen Ur Leukocyte Esterase Urine Osmolality Ur Random Creatinine Ur Random Sodium Ur Random Potassium Ur Random Chloride Urine Comment Urine Opiates Screen Ur Methadone, Qual Urine Fentanyl Screen Urine Barbiturates Ur Phencyclidine (PCP) U Amphetamin/Meth Scrn MDMA (Ecstasy) Screen U Benzodiazepines Scrn Ur Cocaine Metabolite U Marijuana (THC) Screen Adenovirus (PCR) B. pertussis DNA (PCR) B.parapertussis DNA PCR Lyme Disease Screen C. pneumoniae DNA (PCR) Coronavirus OC43 (PCR) Coronavirus HKU1 (PCR) Coronavirus 229E (PCR) SARS-CoV-2 (PCR) Coronavirus NL63 (PCR) Human Metapneumovir PCR Influenza Type A (PCR) Influenza Type B (PCR) M. pneumoniae (PCR) Parainfluenza 1 (PCR) Parainfluenza 2 (PCR) Parainfluenza 3 (PCR) Parainfluenza 4 (PCR) RSV (PCR) Entero/Rhino (PCR) Blood Parasites ID Cancelled Blood Type O Negative Antibody Screen NEGATIVE 11/18/24 11/18/24 11/18/24 08:13 09:14 09:18 WBC 7.47 RBC 4.64 L Hgb 13.9 L POC Hgb Hct 44.9 POC Hct MCV 96.8 MCH 30.0 MCHC 31.0 L RDW Std Deviation 47.8 H RDW Coeff of Ethel 13.6 Plt Count 139 MPV 9.3 L Immature Gran % (Auto) 0.4 Neut % (Auto) 87.1 Lymph % (Auto) 6.3 [place] % (Auto) 5.9 Eos % (Auto) 0.0 Baso % (Auto) 0.3 Neut # (Auto) 6.51 H Lymph # (Auto) 0.47 L [place] # (Auto) 0.44 Eos # (Auto) 0.00 Baso # (Auto) 0.02 Immature Gran # (Auto) 0.03 Absolute Nucleated RBC Nucleated RBC % (auto) Neutrophils % (Manual) Band Neutrophils % Lymphocytes % (Manual) Prolymphocyte % Reactive Lymphs % (Man) Monocytes % (Manual) Eosinophils % (Manual) Basophils % (Manual) Metamyelocytes % (Man) Myelocytes % (Man) Promyelocytes % (Man) Blast Cells % (Manual) Plasma Cell % (Manual) Other Cells % Nucleated RBC % Neutrophils # (Manual) Band Neutrophils # Total Absolute Neuts Lymphocytes # (Manual) Prolymphocyte # Reactive Lymphs # Total Abs Lymphocytes Monocytes # (Manual) Eosinophils # (Manual) Basophils # (Manual) Metamyelocytes # (Man) Myelocytes # (Manual) Promyelocytes # (Man) Blast Cells # (Man) Plasma Cell # (Manual) Other Cells # Nucleated RBCs # (Man) Hypersegmented Neuts Hyposegmented Neuts Hypogranular Neuts Large Granular Lymphs # Lrg Granular Lymphs Hairy Cells Smudge Cells Toxic Granulation Toxic Vacuolation Dohle Bodies Fan Rods Platelet Estimate Hypogranular Platelets Giant Platelets Platelet Satelliting RBC Morphology Polychromasia Hypochromasia Poikilocytosis Basophilic Stippling Anisocytosis Microcytosis Macrocytosis Spherocytes Pappenheimer Bodies Sickle Cells Target Cells Tear Drop Cells Ovalocytes Stomatocytes Plasencia[place] Bodies Echinocytes Acanthocytes (Spur) Rouleaux RBC Agglutinates Schistocytes Sezary Cell PT 11.1 INR 1.0 APTT 26 PTT Ratio 1.0 Specimen Type POC pH POC pCO2 POC pO2 POC HCO3 POC Total CO2 POC Base Excess POC ABG O2 Sat POC Sodium Sodium POC Potassium Potassium Chloride Carbon Dioxide Anion Gap BUN Creatinine Est Cr Clr Drug Dosing eGFR BUN/Creatinine Ratio Glucose Lactate 1.0 Calcium Magnesium Total Bilirubin AST ALT Alkaline Phosphatase Ammonia Troponin I High Sens 73.7 H* D B-Natriuretic Peptide 100 Total Protein Albumin Globulin Albumin/Globulin Ratio Procalcitonin TSH Urine Color Urine Appearance Urine pH Ur Specific [place] Urine Protein Urine Glucose (UA) Urine Ketones Urine Blood Urine Nitrite Urine Bilirubin Urine Urobilinogen Ur Leukocyte Esterase Urine Osmolality Ur Random Creatinine Ur Random Sodium Ur Random Potassium Ur Random Chloride Urine Comment Urine Opiates Screen Ur Methadone, Qual Urine Fentanyl Screen Urine Barbiturates Ur Phencyclidine (PCP) U Amphetamin/Meth Scrn MDMA (Ecstasy) Screen U Benzodiazepines Scrn Ur Cocaine Metabolite U Marijuana (THC) Screen Adenovirus (PCR) B. pertussis DNA (PCR) B.parapertussis DNA PCR Lyme Disease Screen C. pneumoniae DNA (PCR) Coronavirus OC43 (PCR) Coronavirus HKU1 (PCR) Coronavirus 229E (PCR) SARS-CoV-2 (PCR) Coronavirus NL63 (PCR) Human Metapneumovir PCR Influenza Type A (PCR) Influenza Type B (PCR) M. pneumoniae (PCR) Parainfluenza 1 (PCR) Parainfluenza 2 (PCR) Parainfluenza 3 (PCR) Parainfluenza 4 (PCR) RSV (PCR) Entero/Rhino (PCR) Blood Parasites ID Blood Type Antibody Screen 11/18/24 11/18/24 11/18/24 09:19 09:47 10:02 WBC RBC Hgb POC Hgb Hct POC Hct MCV MCH MCHC RDW Std Deviation RDW Coeff of Ethel Plt Count MPV Immature Gran % (Auto) Neut % (Auto) Lymph % (Auto) [place] % (Auto) Eos % (Auto) Baso % (Auto) Neut # (Auto) Lymph # (Auto) [place] # (Auto) Eos # (Auto) Baso # (Auto) Immature Gran # (Auto) Absolute Nucleated RBC Nucleated RBC % (auto) Neutrophils % (Manual) Band Neutrophils % Lymphocytes % (Manual) Prolymphocyte % Reactive Lymphs % (Man) Monocytes % (Manual) Eosinophils % (Manual) Basophils % (Manual) Metamyelocytes % (Man) Myelocytes % (Man) Promyelocytes % (Man) Blast Cells % (Manual) Plasma Cell % (Manual) Other Cells % Nucleated RBC % Neutrophils # (Manual) Band Neutrophils # Total Absolute Neuts Lymphocytes # (Manual) Prolymphocyte # Reactive Lymphs # Total Abs Lymphocytes Monocytes # (Manual) Eosinophils # (Manual) Basophils # (Manual) Metamyelocytes # (Man) Myelocytes # (Manual) Promyelocytes # (Man) Blast Cells # (Man) Plasma Cell # (Manual) Other Cells # Nucleated RBCs # (Man) Hypersegmented Neuts Hyposegmented Neuts Hypogranular Neuts Large Granular Lymphs # Lrg Granular Lymphs Hairy Cells Smudge Cells Toxic Granulation Toxic Vacuolation Dohle Bodies Fan Rods Platelet Estimate Hypogranular Platelets Giant Platelets Platelet Satelliting RBC Morphology Polychromasia Hypochromasia Poikilocytosis Basophilic Stippling Anisocytosis Microcytosis Macrocytosis Spherocytes Pappenheimer Bodies Sickle Cells Target Cells Tear Drop Cells Ovalocytes Stomatocytes Plasencia[place] Bodies Echinocytes Acanthocytes (Spur) Rouleaux RBC Agglutinates Schistocytes Sezary Cell PT INR APTT PTT Ratio Specimen Type POC pH POC pCO2 POC pO2 POC HCO3 POC Total CO2 POC Base Excess POC ABG O2 Sat POC Sodium Sodium POC Potassium Potassium Chloride Carbon Dioxide Anion Gap BUN Creatinine Est Cr Clr Drug Dosing eGFR BUN/Creatinine Ratio Glucose Lactate Calcium Magnesium Total Bilirubin AST ALT Alkaline Phosphatase Ammonia Troponin I High Sens B-Natriuretic Peptide Total Protein Albumin Globulin Albumin/Globulin Ratio Procalcitonin TSH Urine Color Pending Urine Appearance Pending Urine pH Pending Ur Specific [place] Pending Urine Protein Pending Urine Glucose (UA) Pending Urine Ketones Pending Urine Blood Pending Urine Nitrite Pending Urine Bilirubin Pending Urine Urobilinogen Pending Ur Leukocyte Esterase Pending Urine Osmolality Pending Ur Random Creatinine Pending Ur Random Sodium Pending Ur Random Potassium Pending Ur Random Chloride Pending Urine Comment Urine Opiates Screen Pending Ur Methadone, Qual Pending Urine Fentanyl Screen Pending Urine Barbiturates Pending Ur Phencyclidine (PCP) Pending U Amphetamin/Meth Scrn Pending MDMA (Ecstasy) Screen Pending U Benzodiazepines Scrn Pending Ur Cocaine Metabolite Pending U Marijuana (THC) Screen Pending Adenovirus (PCR) Not Detected B. pertussis DNA (PCR) Not Detected B.parapertussis DNA PCR Not Detected Lyme Disease Screen Pending C. pneumoniae DNA (PCR) Not Detected Coronavirus OC43 (PCR) Not Detected Coronavirus HKU1 (PCR) Not Detected Coronavirus 229E (PCR) Not Detected SARS-CoV-2 (PCR) Not Detected Coronavirus NL63 (PCR) Not Detected Human Metapneumovir PCR Not Detected Influenza Type A (PCR) Not Detected Influenza Type B (PCR) Not Detected M. pneumoniae (PCR) Not Detected Parainfluenza 1 (PCR) Not Detected Parainfluenza 2 (PCR) Not Detected Parainfluenza 3 (PCR) Not Detected Parainfluenza 4 (PCR) Not Detected RSV (PCR) Not Detected Entero/Rhino (PCR) Not Detected Blood Parasites ID Blood Type Antibody Screen 11/18/24 10:50 WBC RBC Hgb POC Hgb 13.9 L Hct POC Hct 41 L MCV MCH MCHC RDW Std Deviation RDW Coeff of Ethel Plt Count MPV Immature Gran % (Auto) Neut % (Auto) Lymph % (Auto) [place] % (Auto) Eos % (Auto) Baso % (Auto) Neut # (Auto) Lymph # (Auto) [place] # (Auto) Eos # (Auto) Baso # (Auto) Immature Gran # (Auto) Absolute Nucleated RBC Nucleated RBC % (auto) Neutrophils % (Manual) Band Neutrophils % Lymphocytes % (Manual) Prolymphocyte % Reactive Lymphs % (Man) Monocytes % (Manual) Eosinophils % (Manual) Basophils % (Manual) Metamyelocytes % (Man) Myelocytes % (Man) Promyelocytes % (Man) Blast Cells % (Manual) Plasma Cell % (Manual) Other Cells % Nucleated RBC % Neutrophils # (Manual) Band Neutrophils # Total Absolute Neuts Lymphocytes # (Manual) Prolymphocyte # Reactive Lymphs # Total Abs Lymphocytes Monocytes # (Manual) Eosinophils # (Manual) Basophils # (Manual) Metamyelocytes # (Man) Myelocytes # (Manual) Promyelocytes # (Man) Blast Cells # (Man) Plasma Cell # (Manual) Other Cells # Nucleated RBCs # (Man) Hypersegmented Neuts Hyposegmented Neuts Hypogranular Neuts Large Granular Lymphs # Lrg Granular Lymphs Hairy Cells Smudge Cells Toxic Granulation Toxic Vacuolation Dohle Bodies Fan Rods Platelet Estimate Hypogranular Platelets [place] Platelets Platelet Satelliting RBC Morphology Polychromasia Hypochromasia Poikilocytosis Basophilic Stippling Anisocytosis Microcytosis Macrocytosis Spherocytes Pappenheimer Bodies Sickle Cells Target Cells Tear Drop Cells Ovalocytes Stomatocytes Plasencia[place] Bodies Echinocytes Acanthocytes (Spur) Rouleaux RBC Agglutinates Schistocytes Sezary Cell PT INR APTT PTT Ratio Specimen Type POC pH 7.55 H* POC pCO2 36 POC pO2 89 POC HCO3 31 H POC Total CO2 32 H POC Base Excess 9.0 H POC ABG O2 Sat 98.0 H POC Sodium 140 Sodium POC Potassium 4.8 Potassium Chloride Carbon Dioxide Anion Gap BUN Creatinine Est Cr Clr Drug Dosing eGFR BUN/Creatinine Ratio Glucose Lactate Calcium Magnesium Total Bilirubin AST ALT Alkaline Phosphatase Ammonia Cancelled Troponin I High Sens B-Natriuretic Peptide Total Protein Albumin Globulin Albumin/Globulin Ratio Procalcitonin TSH Urine Color Urine Appearance Urine pH Ur Specific [place] Urine Protein Urine Glucose (UA) Urine Ketones Urine Blood Urine Nitrite Urine Bilirubin Urine Urobilinogen Ur Leukocyte Esterase Urine Osmolality Ur Random Creatinine Ur Random Sodium Ur Random Potassium Ur Random Chloride Urine Comment Urine Opiates Screen Ur Methadone, Qual Urine Fentanyl Screen Urine Barbiturates Ur Phencyclidine (PCP) U Amphetamin/Meth Scrn MDMA (Ecstasy) Screen U Benzodiazepines Scrn Ur Cocaine Metabolite U Marijuana (THC) Screen Adenovirus (PCR) B. pertussis DNA (PCR) B.parapertussis DNA PCR Lyme Disease Screen C. pneumoniae DNA (PCR) Coronavirus OC43 (PCR) Coronavirus HKU1 (PCR) Coronavirus 229E (PCR) SARS-CoV-2 (PCR) Coronavirus NL63 (PCR) Human Metapneumovir PCR Influenza Type A (PCR) Influenza Type B (PCR) M. pneumoniae (PCR) Parainfluenza 1 (PCR) Parainfluenza 2 (PCR) Parainfluenza 3 (PCR) Parainfluenza 4 (PCR) RSV (PCR) Entero/Rhino (PCR) Blood Parasites ID Blood Type Antibody Screen Diagnostic Findings Chest X-Ray 11/18/24 00:00 XR chest 1V portable CLINICAL HISTORY: RESP DISTRESS COMPARISON STUDY: Earlier today FINDINGS: Endotracheal tube tip is between the thoracic inlet and the brenda, stable. Nasogastric tube tip is off the field of view inferiorly. There is stable cardiomegaly with pulmonary vascular congestion. Stable stranding opacity in the lung bases. No pneumothorax. IMPRESSION: Stable exam. ACT 112: Negative or not required by law. Electronically signed by: Noah Mason M.D. 11/18/2024 10:17 AM Chest X-Ray 11/18/24 08:02 XR chest 1V portable CLINICAL HISTORY: neuro deficit, acute stroke suspected COMPARISON STUDY: None FINDINGS: There is mild cardiomegaly with pulmonary vascular congestion. Inspiration is shallow. There is stranding opacity in the lung bases. No lobar consolidation, pleural effusion, or pneumothorax. IMPRESSION: 1. Mild CHF. 2. Likely atelectasis in the lung bases. Follow-up as clinically indicated. ACT 112: Negative or not required by law. Electronically signed by: Noah Mason M.D. 11/18/2024 8:[address] 11/18/24 08:02 CT head/brain wo con CLINICAL HISTORY: 69 years-old Male with neuro deficit, acute stroke suspected. Acute stroke like symptoms TECHNIQUE: Multiple axial CT images of the head were obtained without contrast. A dose lowering technique was utilized adhering to the principles of ALARA. COMPARISON: None FINDINGS: No acute intracranial hemorrhage, midline shift, intracranial mass, hydrocephalus, territorial ischemia or abnormal extra-axial collection. Involutional changes with mild ill-defined white matter hypodensities The calvarium is intact. Indeterminate 10 mm lucent focus of the left parietal calvarium on image 27 series 3. Endotracheal tube with nasopharyngeal secretions. Moderate secretions within the nasal turbinates. 2.5 cm focus of polypoid mucosal thickening present within the dependent right maxillary sinus. IMPRESSION: No acute intracranial abnormality identified. ACT 112: Negative or not required by law. The above report was generated using voice recognition software. It may contain grammatical, syntax or spelling errors. Electronically signed by: Messi Burciaga M.D. 11/18/2024 9:27 AM Chest CTA 11/18/24 08:20 CT ANGIOGRAM OF THE CHEST CLINICAL HISTORY: Shortness of breath. Evaluate for pulmonary embolus. COMPARISON STUDY: Chest radiograph performed earlier today. TECHNIQUE: Following the IV administration of 112 cc of Optiray 320, CT angiogram of the chest was performed from the upper abdomen to the thoracic inlet utilizing the pulmonary embolus protocol. Images are reviewed in the axial, sagittal, and coronal planes. 3-D MIPS images are created and assessed. IV contrast was administered without complication. A dose lowering technique was utilized adhering to the principles of ALARA. CT DOSE: 1391.34 mGy.cm FINDINGS: The tip of the endotracheal tube is 2.2 cm above the brenda. Tip of nasogastric tube is within the distal body of the stomach. No pulmonary emboli are identified although segmental and subsegmental pulmonary arteries are suboptimally assessed on this exam. There is no thoracic aortic dissection. The heart is moderately enlarged and there is moderate coronary artery calcification. No pericardial effusion. No thoracic lymphadenopathy. There is no pneumothorax or pleural effusion. Extensive bilateral lower lobe airspace opacities are greater on the right. There is associated volume loss. There are also mild groundglass opacities within the upper lobes. Central airways are patent. Visualized portions of the upper abdomen are unremarkable IMPRESSION: 1. No pulmonary emboli identified although segmental and subsegmental pulmonary arteries suboptimally assessed. 2. Well-positioned endotracheal and nasogastric tubes. 3. Extensive bilateral lower lobe airspace opacities with volume loss which favor pneumonia/aspiration pneumonitis although atelectasis could appear similar. 4. Scattered groundglass opacities. These may represent pneumonia or alveolar pulmonary edema. 5. Moderate cardiomegaly and coronary artery calcification. ACT 112: Negative or not required by law. Electronically signed by: Fernandez Taylor M.D. 11/18/2024 9:20 AM Chest X-Ray 11/18/24 09:56 XR chest 1V portable CLINICAL HISTORY: respiratory distress COMPARISON STUDY: 11/18/2024 FINDINGS: Endotracheal tube tip is between the thoracic inlet and the brenda. Nasogastric tube tip is off the field of view inferiorly. There is stable cardiomegaly with pulmonary vascular congestion. Inspiration is shallow and there is stable stranding opacity in the lung bases. No pneumothorax. IMPRESSION: Endotracheal tube tip is between the thoracic inlet and the brenda. Otherwise as described. ACT 112: Negative or not required by law. Electronically signed by: Noah Mason M.D. 11/18/2024 10:16 AM EKG - my reading - sinus tach, borderline 1st degree AV block, nonspecific ST record changer assembler III only, PVC Code Status & VTE Plan Code Status full code per his mother Critical Care Time Critical Care Time: Yes Total Critical Care Time: 45 PG Care Time/CCT Total # of Minutes Spent Total Time Spent with Patient: Total time spent is greater than 50% in coordination of care (as documented) at patient's floor/unit and/or counseling patient: Critical Care Time: Yes Total Critical Care Time: 45 Coding Level of Care Code None Diagnoses Acute respiratory failure with hypoxia and hypercapnia J96.01; J96.02 Pneumonia J18.9 Acute metabolic encephalopathy G93.41 Prediabetes R73.03 Smokeless tobacco use Z72.0 Morbid obesity E66.01 Elevated troponin R79.89 Proteinuria R80.9 Sleep disorder breathing G47.30 Additional Codes Critical Care Time - Critical Care Time: Yes ([id number])
[2024-11-18 10:07] LABS: Partial Thromboplastin Time 26 Seconds (21-31); Prothrombin Time 11.1 Seconds (9.0-12.0)
--- NOTE | 2024-11-18 10:17 | XRay Report ---
XR chest 1V portable CLINICAL HISTORY: respiratory distress COMPARISON STUDY: 11/18/2024 FINDINGS: Endotracheal tube tip is between the thoracic inlet and the brenda. Nasogastric tube tip is off the field of view inferiorly. There is stable cardiomegaly with pulmonary vascular congestion. I nspiration is shallow and there is stable stranding opacity in the lung bases. No pneumothorax. IMPRESSION: Endotracheal tube tip is between the thoracic inlet and the brenad. Otherwise as describ ed. ACT 112: Negative or not required by law. Electronically signed by: Noah Mason M.D. 11/18/2024 10:16 AM
--- NOTE | 2024-11-18 10:18 | XRay Report ---
XR chest 1V portable CLINICAL HISTORY: RESP DISTRESS COMPARISON STUDY: Earlier today FINDINGS: Endotracheal tube tip is between the thoracic inlet and the brenda, stable. Nasogastric tub e tip is off the field of view inferiorly. There is stable cardiomegaly with pulmonary vascular conge stion. Stable stranding opacity in the lung bases. No pneumothorax. IMPRESSION: Stable exam. ACT 112: Negative or not required by law. Electronically signed by: Noah Mason M.D. 11/18/2024 10:17 AM
[2024-11-18 10:22] LABS: iSTAT Arterial Blood Gas pCO2 > 130 mmHg (35-46); iSTAT Arterial Blood Gas pH 7.09 (7.35-7.45); iSTAT Arterial Blood Gas pO2 121 mmHg (80-95); iSTAT Hematocrit 47 % (42-52); iSTAT Potassium 4.4 mmol/L (3.3-5.0); iSTAT Sample Type Arterial; iSTAT Sodium 144 mmol/L (135-144)
[2024-11-18 11:06] LABS: iSTAT Arterial Blood Gas HCO3 31 meg/L (19-24); iSTAT Arterial Blood Gas pCO2 36 mmHg (35-46); iSTAT Arterial Blood Gas pH 7.55 (7.35-7.45); iSTAT Arterial Blood Gas pO2 89 mmHg (80-95); iSTAT Carbon Dioxide 32 mmol/L (24-31); iSTAT Hematocrit 41 % (42-52); iSTAT Hemoglobin 13.9 g/dl (14.0-18.0); iSTAT Potassium 4.8 mmol/L (3.3-5.0); iSTAT Sodium 140 mmol/L (135-144)
[2024-11-18 11:15] LABS: Adenovirus PCR Not Detected (NotDetected); Bordetella parapertussis PCR Not Detected (NotDetected); Bordetella pertussis PCR Not Detected (NotDetected); Chlamydia pneumoniae PCR Not Detected (NotDetected); Coronavirus 229E PCR Not Detected (NotDetected); Coronavirus CoV-2 (COVID19)PCR Not Detected (NotDetected); Coronavirus HKU1 PCR Not Detected (NotDetected); Coronavirus NL63 PCR Not Detected (NotDetected); Coronavirus OC43PCR Not Detected (NotDetected); Human Metapneumovirus PCR Not Detected (NotDetected); Influenza A PCR Not Detected (NotDetected); Influenza B PCR Not Detected (NotDetected); Mycoplasma pneumoniae PCR Not Detected (NotDetected); Parainfluenza Virus 1 PCR Not Detected (NotDetected); Parainfluenza Virus 2 PCR Not Detected (NotDetected); Parainfluenza Virus 3 PCR Not Detected (NotDetected); Parainfluenza Virus 4 PCR Not Detected (NotDetected); Respiratory Syncytial VirusPCR Not Detected (NotDetected); Rhinovirus/Enterovirus PCR Not Detected (NotDetected)
[2024-11-18 11:15] LABS: Appearance Urine Clear (Clear); Bacteria Urine Automated None Seen (None Seen); Bilirubin Urine Negative (Negative); Blood Urine Negative (Negative); Color Urine Yellow; Epithelial Cell Urine Auto 0-2 /hpf (0-2); Glucose Urine UA Negative (Negative); Ketones Urine Trace (Negative); Leukocyte Esterase Urine Negative (Negative); Nitrite Urine Negative (Negative); Protein Urine 3+ (Negative); Specific Gravity Urine 1.044 (1.000-1.030); Urobilinogen Urine Negative (Negative); WBC Urine Automated 0-5 /hpf (0-5)
[2024-11-18 11:39] LABS: Sperm Urine Present (None Prsent)
[2024-11-18 11:40] LABS: RBC Urine Automated 0-2 /hpf (0-2)
[2024-11-18 11:41] LABS: Mucus Urine Present (None Prsent)
[2024-11-18 11:43] LABS: Creatinine Urine Random 154.5 mg/dl; Potassium Random Urine 77.8 mmol/L
[2024-11-18 11:48] LABS: Amphetamines+Metham, Urine Neg (Neg); Barbiturates, Urine Neg (Neg); Benzodiazepine, Urine Neg (Neg); Cocaine, Urine Neg (Neg); Fentanyl, Urine Neg (Neg); MDMA (Ecstacy), Urine Neg (Neg); Marijuana, Urine Neg (Neg); Methadone, Urine Neg (Neg); Opiate, Urine Neg (Neg); Phencyclidine, Urine Neg (Neg)
[2024-11-18 13:43] LABS: Estimated Average Glucose 131 mg/dl; Hemoglobin A1C 6.2 % (4.5-5.6)
--- NOTE | 2024-11-18 14:30 | XCELERA ---
[id number]
--- NOTE | 2024-11-18 14:44 | Electrocardiogram Report ---
Test Reason : Blood Pressure : */* mmHG Vent. Rate : 110 BPM Atrial Rate : 110 BPM P-R Int : 178 ms QRS Dur : 94 ms QT Int : 328 ms P-R-T Axes : 43 59 14 degrees QTcB Int : 443 ms Sinus tachycardia with Premature ventricular complexes Borderline ECG No previous ECGs available Confirmed by Mega Alvarado ([id number]) on 11/18/2024 2:43:34 PM Referred By: Confirmed By: Mega Alvarado
[2024-11-19 03:21] LABS: iSTAT Allen Test Pass; iSTAT Art Bld Gas pCO2 Correct 43 mmHg (35-46); iSTAT Art Bld Gas pH Corrected 7.496 (7.35-7.45); iSTAT Arterial Blood Gas HCO3 34 meg/L (19-24); iSTAT Arterial Blood Gas pCO2 44 mmHg (35-46); iSTAT Arterial Blood Gas pO2 78 mmHg (80-95); iSTAT Arterial Blood Gas pO2 C 77; iSTAT Carbon Dioxide 35 mmol/L (24-31); iSTAT FiO2 30 %; iSTAT Hematocrit 36 % (42-52); iSTAT Hemoglobin 12.2 g/dl (14.0-18.0); iSTAT Potassium 4.1 mmol/L (3.3-5.0); iSTAT Sample Type Arterial; iSTAT Site R Radial; iSTAT Sodium 140 mmol/L (135-144); iSTAT SpO2 95
[2024-11-19 05:20] LABS: Basophils # (auto) 0.01 K/uL (0.00-0.20); Basophils % (auto) 0.1 %; Hematocrit (blood only) 40.1 % (42.0-52.0); Hemoglobin 12.6 g/dl (14.0-18.0); Immature Granulocytes # (auto) 0.02 K/uL (0.01-0.20); Immature Granulocytes % (auto) 0.2 %; Lymphocytes # (auto) 1.01 K/uL (1.20-3.40); Mean Corpuscular Hemoglobin 29.9 pg (25.0-34.0); Mean Corpuscular Hgb Conc 31.4 g/dL (32.0-36.0); Mean Corpuscular Volume 95.2 fL (80.0-100.0); Mean Platelet Volume 9.6 fL (9.4-12.4); Monocytes # (auto) 0.83 K/uL (0.11-0.59); Neutrophils # (auto) 7.35 K/uL (1.40-6.50); Neutrophils % (auto) 79.7 %; Platelet Count 128 K/uL (130-400); RDW Coefficient of Variation 13.9 % (11.5-14.5); RDW Standard Deviation 47.8 fL (36.4-46.3); Red Blood Count 4.21 M/uL (4.70-6.10); White Blood Count 9.22 K/ul (4.8-10.8)
[2024-11-19 05:34] LABS: Calcium 8.7 mg/dl (8.6-10.3); Creatinine Clr Calc Pharmacy 64.7 ml/min; Magnesium 2.1 mg/dl (1.7-2.4); Phosphorus 2.3 mg/dl (2.5-4.9)
--- NOTE | 2024-11-19 07:43 | XRay Report ---
EXAM: XR chest 1V portable CLINICAL HISTORY: Follow up. TECHNIQUE: X-ray image of the chest obtained in Anteroposterior (AP) projection. COMPARISON: No prior studies are available for comparison. FINDINGS: ETT with tip 3.9 cm above the brenda. NG tube is seen, with its lower end barely visualized, possibly reaching the left infra-diaphragmatic region. Pulmonary Parenchyma: Prominent bilateral parahilar and bronchovascular markings. No pulmonary nodules were identified. Blunting both costophrenic angles could suggest minimal effusion/ pleural thickening. Heart and Mediastinum: Apparent cardiomegaly. No mediastinal widening or masses. No hilar or mediastinal lymphadenopathy. Bony Thorax: The bony thorax appears intact without fractures or deformities. Soft Tissues: Soft tissues overlying the chest wall are unremarkable. IMPRESSION: 1. Endotracheal Tube with tip 3.9 cm above the brenda. 2. The nasogastric tube is seen, with its lower end barely visualized, possibly reaching the left infra-diaphragmatic region. 3. Prominent bilateral para hilar markings likely congestion. 4. Blunting both costophrenic angles could suggest minimal effusion/ pleural thickening. Electronically signed by Edin Nevarez 11-19-2024 07:42 AM
--- NOTE | 2024-11-19 08:10 | Critical Care Progress Note ---
Date of Service November 19, 2024 Assessment & Plan (1) Acute metabolic encephalopathy: (2) Multifocal pneumonia: (3) Acute respiratory failure with hypoxia and hypercapnia: (4) Class 2 obesity without serious comorbidity with body mass index (BMI) of 38.0 to 38.9 in adult: (5) Smokeless tobacco use: (6) Prediabetes: (7) Dyslipidemia: Plan Reason Critically Ill: 69-year-old male was brought in by his mom to the hospital because of altered mental status. 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/OHS, prediabetes Neuro - [facility]: Unable to assess --Metabolic encephalopathy Likely secondary to hypercapnia TSH within normal limits Sodium, calcium, ammonia, blood sugar within normal limit CT head 11/18/2024: Negative for any acute intracranial abnormality Cardiac - 2D echo 11/18/2024: EF 55-60%, mild TR, borderline concentric LVH, RVSP 30-40 mmHg, grade 1 diastolic dysfunction -- Elevated troponin Likely type II TN Continue to trend EKG 11/18/2024 7:58 AM: Sinus tachycardia with PVCs, normal axis, no ST-T wave changes appreciated --Dyslipidemia Will benefit from a statin at home Respiratory - CTA chest 11/18/2024 personally reviewed: Motion degraded study Minimal centrilobular emphysema in the upper lobes Atelectasis appreciated bilateral lower lobes No pulmonary emboli Cardiomegaly No significant mediastinal lymphadenopathy -- VDRF Likely secondary to acute hypercapnic hypoxic respiratory failure Hypoxia is likely from multifocal lower lobe pneumonia Hypercapnia from probable ANA/OHS Continue with ventilatory support Keep RASS -1 Daily sedation holidays and SBT's Procalcitonin 0.05 Respiratory BioFire negative for everything --ANA/OHS Recommend outpatient polysomnography --Metabolic alkalosis Likely compensation to chronic respiratory acidosis GI - -- No acute issues RENAL/LYTES - -- JUAN A on CKD Monitor BUN/creatinine Avoid nephrotoxic medication ENDO - -- ICU hypoglycemia protocol HEME - --Thrombocytopenia New in onset Could be related to sepsis Continue to trend -- Normocytic anemia Monitor H&H ID - -- Multifocal pneumonia Possible aspiration Procalcitonin 0.05, respiratory BioFire negative for everything on 11/18/2024 Nasal MRSA negative Follow-up sputum culture, continue with antibiotics --Prophylaxis VTE: Lovenox, changed to once a day GI: Pepcid Lines: Peripheral Diet: N.p.o. Plan: In/out: +2 L, urine output 765 ABG 7.50/44/78 on 30%. Tidal volume was decreased to 420 Creatinine went up a little bit. Will give D5 half NS at 125 mL an hour Phosphorus being replaced Continue with Zosyn Follow-up sputum culture Trial of extubation today Patient's condition was discussed with patient's mother and sister at bedside I have personally spent 40 minutes of critical care time in the direct management of this patient. This is a life/limb threatening event. This includes time spent evaluating patient, direct bedside care, chart review, placing orders, interpretation of diagnostic studies, discussion with consultants, patient, and family members, as well as other required patient management activities. This time is exclusive of all separately billable procedures, and teaching time and separate from and in addition to any other critical care service time. Admission and Anticipated Discharge Date Admission Date: November 18, 2024 Subjective Patient seen and examined at bedside. No acute distress, no adverse events overnight He was on propofol 20 at the time of examination He was waking up, following simple commands, moving extremities to command Saturating 99% on 30% FiO2, I went down to 25%. Has been afebrile in the last 12 hours Review of Systems 2 Review of Systems: All systems reviewed & are unremarkable except as noted in Subjective Physical Exam 2 Physical Exam: Constitutional: No acute distress HEENT: PERRLA Respiratory system: Decreased air entry bilaterally, no wheeze, no rhonchi, positive crackles bilateral lower lobe CVS: S1-S2 positive, no murmurs or gallops Abdomen: Soft, nontender, nondistended, positive bowel sounds x4, obese Extremities: +2 pulses bilaterally radialis/ dorsalis pedis, no cyanosis, minimal pitting edema bilateral lower extremity Neuro: RASS -1, moving extremities to command Psych: Unable to assess G/U: Positive Carrion Skin: no rashes, warm and dry Lymphatic: no cervical or axillary lymphadenopathy Results & Data Results & Data Vital Signs (Past 12 Hours) Vital Signs Temp Pulse Resp BP Pulse Ox O2 Del Method FiO2 11/19/24 06:42 36.8 C 61 15 98 Mechanical Vent 30 11/19/24 06:31 135/71 11/19/24 06:03 36.8 C 60 15 97 Mechanical Vent 30 05/22/25 06:00 107/57 L 11/19/24 05:42 36.8 C 59 L 15 96 Mechanical Vent 30 11/19/24 05:36 36.8 C 60 15 96 Mechanical Vent 30 11/19/24 05:15 36.8 C 61 15 96 Mechanical Vent 30 11/19/24 05:00 114/60 11/19/24 04:09 36.8 C 60 15 96 Mechanical Vent 30 11/19/24 04:00 109/57 L 11/19/24 04:00 109/57 L 11/19/24 04:00 30 11/19/24 03:39 36.8 C 59 L 15 96 Mechanical Vent 30 11/19/24 03:30 107/58 L 11/19/24 03:15 57 L 15 97 30 11/19/24 03:09 36.9 C 57 L 17 100 Mechanical Vent 11/19/24 02:30 108/59 L 11/19/24 02:30 36.9 C 60 15 96 Mechanical Vent 11/19/24 02:27 36.9 C 60 15 96 Mechanical Vent 30 11/19/24 02:00 106/56 L 11/19/24 01:54 37.0 C 61 15 96 Mechanical Vent 30 11/19/24 01:30 37.1 C 62 15 96 Mechanical Vent 11/19/24 01:00 37.2 C 63 15 96 Mechanical Vent 11/19/24 01:00 112/62 11/19/24 00:30 37.3 C 64 15 95 Mechanical Vent 30 11/19/24 00:00 110/61 11/19/24 00:00 37.3 C 64 15 94 11/19/24 00:00 62 11/19/24 00:00 30 11/18/24 23:33 37.3 C 63 15 95 Mechanical Vent 30 11/18/24 23:30 125/68 11/18/24 23:15 65 17 97 30 11/18/24 23:12 37.4 C 66 15 95 11/18/24 23:00 112/63 11/18/24 22:33 37.4 C 65 15 96 Mechanical Vent 30 11/18/24 22:30 119/64 11/18/24 22:21 37.4 C 65 15 98 Mechanical Vent 30 11/18/24 22:00 113/61 11/18/24 22:00 37.5 C 65 15 96 Mechanical Vent 30 11/18/24 21:36 37.6 C H 67 15 95 Mechanical Vent 30 11/18/24 21:30 113/65 11/18/24 21:15 109/61 11/18/24 21:15 109/61 11/18/24 21:15 109/61 11/18/24 21:15 37.7 C H 67 15 96 Mechanical Vent 30 11/18/24 21:00 109/60 11/18/24 21:00 37.7 C H 67 15 96 Mechanical Vent 30 11/18/24 20:36 37.7 C H 66 15 96 Mechanical Vent 30 11/18/24 20:30 117/61 11/18/24 20:15 110/59 L 11/18/24 20:15 37.8 C H 68 15 95 Mechanical Vent 30 11/18/24 20:10 65 15 96 30 Laboratory Results 11/19/24 05:07 11/19/24 05:07 Coding Level of Care Code 48139 CRITICAL CARE 1ST 30-74M Diagnoses Acute metabolic encephalopathy G93.41 Multifocal pneumonia J18.9 Acute respiratory failure with hypoxia and hypercapnia J96.01; J96.02 Class 2 obesity without serious comorbidity with body mass index (BMI) of 38.0 to 38.9 in adult E66.9; Z68.38 Smokeless tobacco use Z72.0 Prediabetes R73.03 Dyslipidemia E78.5
--- NOTE | 2024-11-19 13:55 | Hospitalist Progress Note ---
Date of Service November 19, 2024 Assessment & Plan (1) Acute respiratory failure with hypoxia and hypercapnia: (2) Pneumonia: (3) Acute metabolic encephalopathy: (4) Morbid obesity: Plan This patient is a 69yo male with history of morbid obesity, pre-DM, and smokeless tobacco use who presents from his PCP's office with severely altered mental status, severe hypoxia and hypercapnia, and cough/dyspnea. He was transported by EMS to the hospital and upon arrival here his GCS was <7 and and PaCO2 was >135. He was subsequently intubated and transferred to the ICU. Diagnosed with pneumonia based on CT angiogram of chest. #Acute hypoxic & hypercapnic respiratory failure/pneumonia- -suspect he has baseline chronic hypercapnia from untreated/undiagnosed ANA/OHS; can't rule out narcolepsy based on his mother's history although this seems to have developed more in just the last month or so. Suspect significant weight gain over the last year contributing to development of ANA/OHS. The acute respiratory failure likely worsened due to bilateral lower lobe pneumonia. There is no evidence of PE on CTA chest and no clinical or radiographic evidence of CHF. Respiratory BioFire negative. ABG now normalized and he is extubated to room air on 11/19. Echo with preserved LVEF 55-60%, mild TR, borderline concentric LVH, RVSP mildly elevated at 30-40 mmHg. Has elevated serum bicarbonate consistent with chronic CO2 retention. No risk factors for gram-negative pneumonia, no recent vomiting or dysphagia to suspect aspiration - Continue stay in ICU overnight for further observation, appreciate flight coordinator management - Will need BiPAP at nighttime and will arrange for home AVAPS - Continue Zosyn, doxycycline for pneumonia - Continue albuterol as needed - Encourage weight loss - Follow-up legionella urine ag, blood cultures, sputum culture when available -Will need a two-step oxygen walk test prior to discharge -Follow chest x-ray in the morning - Advance diet as tolerated with speech therapy recommendations - DC IV fluids once taking adequate p.o. #acute metabolic encephalopathy - -2nd to severe hypoxia and hypercapnia which is now resolved. Ammonia level, TSH, urine drug screen all normal. CT head negative for acute issue. Anaplasmosis and babesiosis smear negative, PCR pending - Supportive care, improved #morbid obesity, BMI ~40 -Needs weight loss #Prediabetes - -hemoglobin a1c 6.3% in August 2024 and remains at 6.2% -BSG checks per ICU protocol #elevated troponin - -likely myocardial demand ischemia in setting of his respiratory failure/pneumonia. He does have coronary artery calcifications on CT of the chest. Troponin peaked at 149. Echo without wall motion abnormalities-EKG without any ischemic changes and no reported ischemic symptoms at home #proteinuria - -3+ protein on u/a -Follow-up as outpatient #smokeless tobacco use - -nicoderm patch 14mg/24hr DVT proph - -lovenox 40mg daily Disposition-continued stay in ICU but likely downgrade to PCU on 11/20, PT/OT consults placed Admission and Anticipated Discharge Date Admission Date: November 18, 2024 Subjective Patient extubated this morning and reports he feels fine. He ate liquids after being cleared by speech therapy. He reports over the last few weeks he has been very tired and sleeping more lately. He denied fevers or chills or productive cough, no chest pain. He has gained about 40 pounds he thinks since he retired about 6 months ago since he has been less active. Telemetry with normal sinus rhythm and normal rates. Physical Exam Constitutional: WD/WN, vitals as above + morbidly obese Neck: trachea midline, no thyromegaly + thick neck Respiratory: normal respiratory effort, lungs clear to auscultation Cardiovascular: Rate/Rhythm: regular rate and regular rhythm Heart Sounds: no murmur Extremities: + edema (Trace edema legs bilaterally) Chest (Breasts): Chest: normal inspection of chest Gastrointestinal (Abdomen): normal bowel sounds, soft, nontender, no hepatosplenomegaly Musculoskeletal: Extremities: extremities normal to inspection; no cyanosis and no clubbing Skin: no rashes, warm and dry Neurologic: moves all extremities and awake; no focal motor deficits Psychiatric: A+Ox3, euthymic affect Results & Data Results & Data Vital Signs (Past 12 Hours) Vital Signs Temp Pulse Resp BP Pulse Ox O2 Del Method FiO2 11/19/24 11:30 136/65 11/19/24 11:06 77 21 90 11/19/24 11:00 129/65 11/19/24 10:54 77 36 H 88 L 11/19/24 10:27 74 23 90 11/19/24 09:00 120/63 11/19/24 08:36 68 21 98 11/19/24 08:33 65 24 96 21 11/19/24 08:30 140/73 11/19/24 08:27 36.9 C 68 26 H 95 11/19/24 08:00 72 11/19/24 08:00 125/69 11/19/24 08:00 125/69 11/19/24 08:00 36.9 C 63 21 96 11/19/24 07:36 60 15 98 30 11/19/24 07:30 114/61 11/19/24 07:30 114/61 11/19/24 07:30 36.9 C 59 L 15 98 11/19/24 07:03 36.9 C 61 15 99 11/19/24 07:00 128/71 11/19/24 06:45 36.8 C 62 15 98 11/19/24 06:42 36.8 C 61 15 98 Mechanical Vent 11/19/24 06:31 135/71 11/19/24 06:03 36.8 C 60 15 97 Mechanical Vent 11/19/24 06:00 107/57 L 11/19/24 05:42 36.8 C 59 L 15 96 Mechanical Vent 11/19/24 05:36 36.8 C 60 15 96 Mechanical Vent 11/19/24 05:15 36.8 C 61 15 96 Mechanical Vent 11/19/24 05:00 114/60 11/19/24 04:09 36.8 C 60 15 96 Mechanical Vent 11/19/24 04:00 109/57 L 11/19/24 04:00 109/57 L 11/19/24 04:00 30 11/19/24 03:39 36.8 C 59 L 15 96 Mechanical Vent 11/19/24 03:30 107/58 L 11/19/24 03:15 57 L 15 97 30 11/19/24 03:09 36.9 C 57 L 17 100 Mechanical Vent 11/19/24 02:30 108/59 L 11/19/24 02:30 36.9 C 60 15 96 Mechanical Vent 11/19/24 02:27 36.9 C 60 15 96 Mechanical Vent 11/19/24 02:00 106/56 L Laboratory Results CBC, BMP, ABG, HgbA1c, phosphorus, magnesium, sputum culture, blood cultures reviewed Diagnostic Findings Echocardiogram reviewed PG Care Time/CCT Total # of Minutes Spent Total Time Spent with Patient: Total time spent is greater than 50% in coordination of care (as documented) at patient's floor/unit and/or counseling patient: Coding Level of Care Code 04919 SUB INP/OBS CARE 3/50MIN Diagnoses Acute respiratory failure with hypoxia and hypercapnia J96.01; J96.02 Pneumonia J18.9 Acute metabolic encephalopathy G93.41 Morbid obesity E66.01
[2024-11-19 16:27] LABS: Calcium 9.2 mg/dl (8.6-10.3); Creatinine Clr Calc Pharmacy 63.7 ml/min; Potassium 3.8 mmol/L (3.5-5.1)
[2024-11-20 05:19] LABS: Basophils # (auto) 0.03 K/uL (0.00-0.20); Basophils % (auto) 0.4 %; Eosinophils # (auto) 0.02 K/uL (0.00-0.50); Eosinophils % (auto) 0.2 %; Hematocrit (blood only) 41.3 % (42.0-52.0); Hemoglobin 12.7 g/dl (14.0-18.0); Immature Granulocytes # (auto) 0.02 K/uL (0.01-0.20); Immature Granulocytes % (auto) 0.2 %; Lymphocytes % (auto) 24.6 %; Mean Corpuscular Hemoglobin 29.9 pg (25.0-34.0); Mean Corpuscular Hgb Conc 30.8 g/dL (32.0-36.0); Mean Corpuscular Volume 97.2 fL (80.0-100.0); Mean Platelet Volume 9.5 fL (9.4-12.4); Monocytes # (auto) 0.71 K/uL (0.11-0.59); Monocytes % (auto) 8.7 %; Neutrophils # (auto) 5.34 K/uL (1.40-6.50); Neutrophils % (auto) 65.9 %; Platelet Count 126 K/uL (130-400); RDW Coefficient of Variation 14.3 % (11.5-14.5); RDW Standard Deviation 49.6 fL (36.4-46.3); Red Blood Count 4.25 M/uL (4.70-6.10); White Blood Count 8.12 K/ul (4.8-10.8)
[2024-11-20 05:32] LABS: BUN Creatinine Ratio 19.9 (10-20); Calcium 8.7 mg/dl (8.6-10.3); Creatinine Clr Calc Pharmacy 64.6 ml/min; Magnesium 2.2 mg/dl (1.7-2.4); Phosphorus 2.9 mg/dl (2.5-4.9); Potassium 3.8 mmol/L (3.5-5.1)
--- NOTE | 2024-11-20 07:42 | XRay Report ---
EXAM: XR chest 1V portable CLINICAL HISTORY: resp failure TECHNIQUE: X-ray image of the chest obtained in 1 frontal projection. COMPARISON: Prior X-ray dated 11/19/2024 for comparison. FINDINGS: Interval removal of ETT and NG tube. Pulmonary Parenchyma: Unchanged prominent bilateral parahilar markings. Suggestion of mild atelectatic changes in right lower zone. No pulmonary nodules identified. No evidence of pleural effusion or pleural thickening. Heart and Mediastinum: Apparent cardiomegaly. No mediastinal widening or masses. No hilar or mediastinal lymphadenopathy. Bony Thorax: Bony thorax appears intact without fractures or deformities. Soft Tissues: Soft tissues overlying the chest wall are unremarkable. IMPRESSION: 1. Interval removal of ETT and NG tube. 2. Apparent cardiomegaly. 3. Unchanged prominent bilateral parahilar markings likely congestion. 4. Suggestion of mild atelectatic changes in right lower zone. Electronically signed by Edin Nevarez 11-20-2024 07:42 AM
--- NOTE | 2024-11-20 07:55 | Critical Care Progress Note ---
Date of Service November 20, 2024 Assessment & Plan (1) Acute metabolic encephalopathy: (2) Multifocal pneumonia: (3) Acute respiratory failure with hypoxia and hypercapnia: (4) Class 2 obesity without serious comorbidity with body mass index (BMI) of 38.0 to 38.9 in adult: (5) Smokeless tobacco use: (6) Prediabetes: (7) Dyslipidemia: Plan Reason Critically Ill: 69-year-old male was brought in by his mom to the hospital because of altered mental status. 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/OHS, prediabetes Neuro - [facility]: Unable to assess -- S/p metabolic encephalopathy Likely secondary to hypercapnia TSH within normal limits Sodium, calcium, ammonia, blood sugar within normal limit CT head 11/18/2024: Negative for any acute intracranial abnormality Cardiac - 2D echo 11/18/2024: EF 55-60%, mild TR, borderline concentric LVH, RVSP 30-40 mmHg, grade 1 diastolic dysfunction -- Elevated troponin Likely type II OH Continue to trend EKG 11/18/2024 7:58 AM: Sinus tachycardia with PVCs, normal axis, no ST-T wave changes appreciated --Dyslipidemia Will benefit from a statin at home Respiratory - CTA chest 11/18/2024 personally reviewed: Motion degraded study Minimal centrilobular emphysema in the upper lobes Atelectasis appreciated bilateral lower lobes No pulmonary emboli Cardiomegaly No significant mediastinal lymphadenopathy -- S/p VDRF Likely secondary to acute hypercapnic hypoxic respiratory failure Hypoxia is likely from multifocal lower lobe pneumonia Hypercapnia from probable ANA/OHS Extubated 11/19/2024 Procalcitonin 0.05 Respiratory BioFire negative for everything Patient's significant morbid obesity has resulted in a restrictive thoracic cage abnormality. Because of this patient does not fully expand her lungs for proper ventilation causing recurrent hypercapnic respiratory failure with a PaCo2 of >130. Multiple underlying comorbidities are noted with a weight of 118 kg. Patient would benefit greatly from noninvasive ventilation which would improve lung function and potentially reduce worsening of symptoms. A BiPAP would be ineffective as patient requires a volume targeted mode. Interruption of ventilator support would lead to a decline of health status. NIMV settings should be AVAPS-AE; Breath rate: auto; Inspiratory time:auto; Sigh: off; Tidal Volume: 350-450, PS min: 4-10 PS max: 12-20; EPAP min: 6-10; EPAP max: 10-16; AVAPS rate: 14 during sleep and as needed --ANA/OHS Recommend outpatient polysomnography --Metabolic alkalosis Likely compensation to chronic respiratory acidosis GI - -- No acute issues RENAL/LYTES - -- JUAN A on CKD Monitor BUN/creatinine Avoid nephrotoxic medication ENDO - -- ICU hypoglycemia protocol HEME - --Thrombocytopenia New in onset Could be related to sepsis Continue to trend -- Normocytic anemia Monitor H&H ID - -- Multifocal pneumonia Possible aspiration Procalcitonin 0.05, respiratory BioFire negative for everything on 11/18/2024 Nasal MRSA negative Follow-up sputum culture, continue with antibiotics --Prophylaxis VTE: Lovenox, changed to once a day GI: Pepcid Lines: Peripheral Diet: Cardiac Plan: In/out: -725, urine output 3950 Change Zosyn to Augmentin and complete the course for 5 days along with doxycycline Sputum culture and blood culture negative to date Potassium being replaced Although the patient's creatinine is still 1.4, he is making good amount of urine and his appetite is good. No need to give IV fluids Continue to trend creatinine Patient's significant morbid obesity has resulted in a restrictive thoracic cage abnormality. Because of this patient does not fully expand her lungs for proper ventilation causing recurrent hypercapnic respiratory failure with a PaCo2 of >130. Multiple underlying comorbidities are noted with a weight of 118 kg. Patient would benefit greatly from noninvasive ventilation which would improve lung function and potentially reduce worsening of symptoms. A BiPAP would be ineffective as patient requires a volume targeted mode. Interruption of ventilator support would lead to a decline of health status. NIMV settings should be AVAPS-AE; Breath rate: auto; Inspiratory time:auto; Sigh: off; Tidal Volume: 350-450, PS min: 4-10 PS max: 12-20; EPAP min: 6-10; EPAP max: 10-16; AVAPS rate: 14 during sleep and as needed Okay to be downgrade to medical floor Case discussed with primary team as well as case management I spent more than 50 minutes looking in the chart, images, discussing the plan of care with the patient, RN as well as primary team Please note the above document was generated using voice recognition software. It may contain grammatical, syntax or spelling errors.Any formal questions or concerns about the content, text or information contained within the body of this dictation should be directly addressed to the provider for clarification. Admission and Anticipated Discharge Date Admission Date: November 18, 2024 Review of Systems 2 Review of Systems: All systems reviewed & are unremarkable except as noted in Subjective Physical Exam 2 Physical Exam: Constitutional: No acute distress HEENT: PERRLA, EOMI, hard to hear Respiratory system: Decreased air entry bilaterally, no wheeze, no rhonchi, minimal crackles bilateral lower lobe CVS: S1-S2 positive, no murmurs or gallops Abdomen: Soft, nontender, nondistended, positive bowel sounds x4, obese Extremities: +2 pulses bilaterally radialis/ dorsalis pedis, no cyanosis, +1 pitting edema bilateral lower extremity Neuro: Awake alert oriented x 3 Psych: Normal mood and affect G/U: Positive Carrion Skin: no rashes, warm and dry Lymphatic: no cervical or axillary lymphadenopathy Results & Data Results & Data Vital Signs (Past 12 Hours) Vital Signs Pulse Pulse Resp BP Pulse Ox O2 Del Method FiO2 11/20/24 06:00 71 19 132/71 91 Room Air 11/20/24 05:32 68 24 98 Room Air 11/20/24 05:00 62 18 131/72 96 Room Air 11/20/24 04:16 64 24 96 21 11/20/24 04:00 64 20 119/72 95 BiPAP 21 11/20/24 03:00 70 23 124/72 92 BiPAP 21 11/20/24 02:00 66 22 126/72 94 BiPAP 21 11/20/24 01:00 66 14 126/78 97 BiPAP 21 11/20/24 01:00 68 20 126/78 94 BiPAP 21 11/19/24 23:59 67 11/19/24 23:51 68 22 94 BiPAP 21 11/19/24 23:00 69 17 123/77 96 BiPAP 21 11/19/24 22:27 75 19 100 21 11/19/24 22:00 73 22 150/87 H 97 BiPAP 21 11/19/24 21:00 71 22 124/75 95 Room Air 11/19/24 20:00 Room Air 11/19/24 20:00 77 Laboratory Results 11/20/24 04:26 11/20/24 04:26 Coding Level of Care Code 92302 SUB INP/OBS CARE 350MIN Diagnoses Acute metabolic encephalopathy G93.41 Multifocal pneumonia J18.9 Acute respiratory failure with hypoxia and hypercapnia J96.01; J96.02 Class 2 obesity without serious comorbidity with body mass index (BMI) of 38.0 to 38.9 in adult E66.9; Z68.38 Smokeless tobacco use Z72.0 Prediabetes R73.03 Dyslipidemia E78.5
--- NOTE | 2024-11-20 16:55 | Hospitalist Progress Note ---
Date of Service November 20, 2024 Assessment & Plan (1) Acute respiratory failure with hypoxia and hypercapnia: (2) Pneumonia: (3) Acute metabolic encephalopathy: (4) Morbid obesity: Plan This patient is a 69yo male with history of morbid obesity, pre-DM, and smokeless tobacco use who presents from his PCP's office with severely altered mental status, severe hypoxia and hypercapnia, and cough/dyspnea. He was transported by EMS to the hospital and upon arrival here his GCS was <7 and and PaCO2 was >135. He was subsequently intubated and transferred to the ICU. Diagnosed with pneumonia based on CT angiogram of chest. He is admitted with acute on likely chronic respiratory failure with hypercapnia and hypoxia and aspiration PNA. #Acute hypoxic & hypercapnic respiratory failure/pneumonia- -suspect he has baseline chronic hypercapnia from untreated/undiagnosed ANA/OHS; can't rule out narcolepsy based on his mother's history although this seems to have developed more in just the last month or so. Suspect significant weight gain over the last year contributing to development of ANA/OHS. The acute respiratory failure likely worsened due to bilateral lower lobe pneumonia. There is no evidence of PE on CTA chest and no clinical or radiographic evidence of CHF. Respiratory BioFire negative. ABG now normalized and he is extubated to room air on 11/19. Echo with preserved LVEF 55-60%, mild TR, borderline concentric LVH, RVSP mildly elevated at 30-40 mmHg. Has elevated serum bicarbonate consistent with chronic CO2 retention. No risk factors for gram-negative pneumonia, no recent vomiting or dysphagia to suspect aspiration, but perhaps with altered MS, he aspirated. Now much improved, tolerating BiPAP qhs. CXR 11/20 clear - Will need BiPAP at nighttime and will arrange for home AVAPS-CM arranging, rx for this signed - Change Zosyn to Augmentin and finish out 7 more days; continue doxycycline for pneumonia - Continue albuterol as needed - Encourage weight loss - Follow-up legionella urine ag, blood cultures, sputum culture when available -Will need a two-step oxygen walk test prior to discharge -dc IVFs, michael Carrion PT/OT consulted #acute metabolic encephalopathy - -2nd to severe hypoxia and hypercapnia which is now resolved. Ammonia level, TSH, urine drug screen all normal. CT head negative for acute issue. Anaplasmosis and babesiosis smear negative, PCR pending - Supportive care, enceph resolved #Thrombocytopenia/Mild anemia-plts mildly low at 126, stable from previous, baseline plts low normal; hgb mildly low at 12, normocytic. TSH normal. No abd imaging of spleen/liver but suspect fatty liver, may have HSM? Could be low plts from infection also -check B12, folate, Fe panel -follow CBC-consider abd US if worsens #morbid obesity, BMI ~40 -Needs weight loss #Prediabetes - -hemoglobin a1c 6.3% in August 2024 and remains at 6.2% -BSG checks and supplemental Novolog prn #elevated troponin - -likely myocardial demand ischemia in setting of his respiratory failure/pneumonia. He does have coronary artery calcifications on CT of the chest. Troponin peaked at 149. Echo without wall motion abnormalities-EKG without any ischemic changes and no reported ischemic symptoms at home. Tele with NSR, normal rates #proteinuria - -3+ protein on u/a -Follow-up as outpatient #smokeless tobacco use - -nicoderm patch 14mg/24hr -encourage cessation DVT proph - -lovenox 40mg daily Disposition- downgrade to PCU, PT/OT consults recommend acute rehab-not sure if pt agreeable to this Admission and Anticipated Discharge Date Admission Date: November 18, 2024 Subjective Pt feeling better, is OOB to chair, eating. Carrion removed. Tolerated BiPAP overnight. No BM since admission, typically has one daily Tele with NSR Physical Exam Constitutional: WD/WN, vitals as above + morbidly obese Neck: trachea midline, no thyromegaly + thick neck Respiratory: normal respiratory effort, lungs clear to auscultation (diminished throughout) Cardiovascular: Rate/Rhythm: regular rate and regular rhythm Heart Sounds: no murmur Extremities: + edema (Trace edema legs bilaterally) Chest (Breasts): Chest: normal inspection of chest Gastrointestinal (Abdomen): normal bowel sounds, soft, nontender, no hepatosplenomegaly Musculoskeletal: Extremities: extremities normal to inspection; no cyanosis and no clubbing Skin: no rashes, warm and dry Neurologic: moves all extremities and awake; no focal motor deficits Psychiatric: A+Ox3, euthymic affect Results & Data Results & Data Vital Signs (Past 12 Hours) Vital Signs Pulse Pulse Resp BP Pulse Ox O2 Del Method 11/20/24 14:00 136/71 11/20/24 14:00 73 18 11/20/24 13:03 69 20 96 11/20/24 13:00 130/75 11/20/24 12:51 72 20 94 11/20/24 12:06 79 19 92 11/20/24 12:00 137/70 11/20/24 11:54 79 18 94 11/20/24 11:21 77 23 93 11/20/24 11:05 154/72 H 11/20/24 10:52 131/74 11/20/24 10:51 71 22 95 11/20/24 10:18 68 16 93 11/20/24 10:00 132/76 11/20/24 09:57 75 18 90 11/20/24 09:27 75 24 95 11/20/24 08:03 78 22 93 11/20/24 08:00 136/87 11/20/24 08:00 73 11/20/24 07:48 77 22 93 11/20/24 07:30 Room Air 11/20/24 07:06 76 16 94 11/20/24 06:00 71 19 132/71 91 Room Air 11/20/24 05:32 68 24 98 Room Air 11/20/24 05:00 62 18 131/72 96 Room Air Laboratory Results CBC, BMP, mag, phos, blood cultures, sputum cx reviewed Diagnostic Findings CXR reviewed PG Care Time/CCT Total # of Minutes Spent Total Time Spent with Patient: Total time spent is greater than 50% in coordination of care (as documented) at patient's floor/unit and/or counseling patient: Coding Level of Care Code 57090 SUB INP/OBS CARE 3/50MIN Diagnoses Acute respiratory failure with hypoxia and hypercapnia J96.01; J96.02 Pneumonia J18.9 Acute metabolic encephalopathy G93.41 Morbid obesity E66.01
[2024-11-21 05:00] LABS: Basophils # (auto) 0.04 K/uL (0.00-0.20); Basophils % (auto) 0.5 %; Eosinophils # (auto) 0.03 K/uL (0.00-0.50); Eosinophils % (auto) 0.4 %; Hemoglobin 12.7 g/dl (14.0-18.0); Immature Granulocytes # (auto) 0.02 K/uL (0.01-0.20); Immature Granulocytes % (auto) 0.3 %; Lymphocytes # (auto) 1.31 K/uL (1.20-3.40); Lymphocytes % (auto) 16.8 %; Mean Corpuscular Hemoglobin 29.8 pg (25.0-34.0); Mean Corpuscular Volume 96.2 fL (80.0-100.0); Mean Platelet Volume 9.4 fL (9.4-12.4); Monocytes # (auto) 0.85 K/uL (0.11-0.59); Monocytes % (auto) 10.9 %; Neutrophils # (auto) 5.54 K/uL (1.40-6.50); Neutrophils % (auto) 71.1 %; Platelet Count 134 K/uL (130-400); RDW Coefficient of Variation 13.9 % (11.5-14.5); RDW Standard Deviation 48.5 fL (36.4-46.3); Red Blood Count 4.26 M/uL (4.70-6.10); White Blood Count 7.79 K/ul (4.8-10.8)
[2024-11-21 05:15] LABS: BUN Creatinine Ratio 20.9 (10-20); Calcium 8.8 mg/dl (8.6-10.3); Creatinine Clr Calc Pharmacy 70.4 ml/min
[2024-11-21 05:35] LABS: Ferritin 118.6 ng/ml (8-388)
[2024-11-21 06:13] LABS: Folate (Folic Acid),Ser orPlas 15.95 ng/ml (>5.38)
--- NOTE | 2024-11-21 07:48 | Pulmonology Progress Note ---
Date of Service November 21, 2024 Assessment & Plan (1) Acute metabolic encephalopathy: (2) Multifocal pneumonia: (3) Acute respiratory failure with hypoxia and hypercapnia: (4) Class 2 obesity without serious comorbidity with body mass index (BMI) of 38.0 to 38.9 in adult: (5) Smokeless tobacco use: (6) Prediabetes: (7) Dyslipidemia: Plan 69-year-old male was brought in by his mom to the hospital because of altered mental status. Was intubated in the ER. Extubated 11/19/2024 Past medical history: Obesity, probable ANA/OHS, prediabetes CTA chest 11/18/2024 personally reviewed: Motion degraded study Minimal centrilobular emphysema in the upper lobes Atelectasis appreciated bilateral lower lobes No pulmonary emboli Cardiomegaly No significant mediastinal lymphadenopathy Bedside spirometry 11/20/2024 personally reviewed: Nonspecific spirometry with no obstruction, inclining more towards moderate to severe restriction pattern FVC 1.77 L 40%, FEV1 1.3 L 41%, FEV1/FVC 75% -- S/p VDRF Likely secondary to acute hypercapnic hypoxic respiratory failure Hypoxia is likely from multifocal lower lobe pneumonia Hypercapnia from probable ANA/OHS Extubated 11/19/2024 Procalcitonin 0.05 Respiratory BioFire negative for everything Patient's significant morbid obesity has resulted in a restrictive thoracic cage abnormality. Because of this patient does not fully expand her lungs for proper ventilation causing recurrent hypercapnic respiratory failure with a PaCo2 of >130. Multiple underlying comorbidities are noted with a weight of 118 kg. Patient would benefit greatly from noninvasive ventilation which would improve lung function and potentially reduce worsening of symptoms. A BiPAP would be ineffective as patient requires a volume targeted mode. Interruption of ventilator support would lead to a decline of health status. NIMV settings should be AVAPS-AE; Breath rate: auto; Inspiratory time:auto; Sigh: off; Tidal Volume: 350-450, PS min: 4-10 PS max: 12-20; EPAP min: 6-10; EPAP max: 10-16; AVAPS rate: 14 during sleep and as needed --ANA/OHS Recommend outpatient polysomnography --Metabolic alkalosis Likely compensation to chronic respiratory acidosis -- Multifocal pneumonia Possible aspiration Procalcitonin 0.05, respiratory BioFire negative for everything on 11/18/2024 Nasal MRSA negative Follow-up sputum culture, continue with antibiotics Plan: In/out: - -545, urine output 1500 mL Spirometry is inclining more towards moderate to severe restriction likely from underlying obesity Complete the course of antibiotic Patient will benefit from noninvasive ventilator on discharge as he is very high risk of decompensating without it. Case discussed with primary team No further recommendation from pulmonary perspective, will sign off Please call directly with any questions Please note the above document was generated using voice recognition software. It may contain grammatical, syntax or spelling errors.Any formal questions or concerns about the content, text or information contained within the body of this dictation should be directly addressed to the provider for clarification. Admission and Anticipated Discharge Date Admission Date: November 18, 2024 Subjective Patient seen and examined at bedside. No acute distress, no gross events overnight He was saturating 96-97% on room air Needed BiPAP overnight Denied any abdominal pain No nausea vomiting, fair appetite Did have bowel movement today Bringing up clear phlegm Review of Systems 2 Review of Systems: All systems reviewed & are unremarkable except as noted in Subjective Physical Exam 2 Physical Exam: Constitutional: No acute distress HEENT: PERRLA, EOMI, hard to hear Respiratory system: Decreased air entry bilaterally, no wheeze, no rhonchi, mild crackles bilateral lower lobe CVS: S1-S2 positive, no murmurs or gallops Abdomen: Soft, nontender, nondistended, positive bowel sounds x4, obese Extremities: +2 pulses bilaterally radialis/ dorsalis pedis, no cyanosis, +1 pitting edema bilateral lower extremity Neuro: Awake alert oriented x 3 Psych: Normal mood and affect G/U: No Carrion Skin: no rashes, warm and dry Lymphatic: no cervical or axillary lymphadenopathy Results & Data Results & Data Vital Signs (Past 12 Hours) Vital Signs Pulse Resp BP Pulse Ox O2 Del Method FiO2 11/21/24 03:10 75 18 160/80 H 94 BiPAP 11/21/24 02:10 76 22 93 25 11/21/24 00:00 70 11/20/24 23:52 79 16 177/96 H 91 BiPAP 11/20/24 22:30 21 11/20/24 22:22 76 16 96 21 11/20/24 21:04 78 20 143/75 H 94 Room Air 11/20/24 20:00 Room Air 11/20/24 20:00 79 Laboratory Results 11/21/24 04:34 11/21/24 04:34 PG Care Time/CCT Total # of Minutes Spent Total Time Spent with Patient: Total time spent is greater than 50% in coordination of care (as documented) at patient's floor/unit and/or counseling patient: Coding Level of Care Code 99352 SUB INP/OBS CARE 2/35MIN Diagnoses Acute metabolic encephalopathy G93.41 Multifocal pneumonia J18.9 Acute respiratory failure with hypoxia and hypercapnia J96.01; J96.02 Class 2 obesity without serious comorbidity with body mass index (BMI) of 38.0 to 38.9 in adult E66.9; Z68.38 Smokeless tobacco use Z72.0 Prediabetes R73.03 Dyslipidemia E78.5
--- NOTE | 2024-11-21 12:40 | Hospitalist Progress Note ---
Date of Service November 21, 2024 Assessment & Plan (1) Acute respiratory failure with hypoxia and hypercapnia: (2) Pneumonia: (3) Acute metabolic encephalopathy: (4) Morbid obesity: Plan This patient is a 69yo male with history of morbid obesity, pre-DM, and smokeless tobacco use who presents from his PCP's office with severely altered mental status, severe hypoxia and hypercapnia, and cough/dyspnea. He was transported by EMS to the hospital and upon arrival here his GCS was <7 and and PaCO2 was >135. He was subsequently intubated and transferred to the ICU. Diagnosed with pneumonia based on CT angiogram of chest. He is admitted with acute on likely chronic respiratory failure with hypercapnia and hypoxia and aspiration PNA. #Acute hypoxic & hypercapnic respiratory failure/pneumonia- -suspect he has baseline chronic hypercapnia from untreated/undiagnosed ANA/OHS; based on mother's history, seems to have developed moreso in just the last month or so. Suspect significant weight gain over the last year contributing to development of ANA/OHS. The acute respiratory failure likely worsened due to bilateral lower lobe pneumonia. There is no evidence of PE on CTA chest and no clinical or radiographic evidence of CHF. Respiratory BioFire negative. ABG now normalized and he is extubated to room air on 11/19. Echo with preserved LVEF 55-60%, mild TR, borderline concentric LVH, RVSP mildly elevated at 30-40 mmHg. Has elevated serum bicarbonate consistent with chronic CO2 retention. No risk factors for gram-negative pneumonia, no recent vomiting or dysphagia to suspect aspiration, but perhaps with altered MS, he aspirated. Now much improved, tolerating BiPAP qhs. CXR 11/20 clear. Legionella urine AG neg, blood cxs and sputum cx remina NGTD - continue BiPAP at nighttime and will arrange for home AVAPS-CM arranging, rx for this signed - Initially treated with Zosyn and then converted to Augmentin and finish out 7 more days; continue doxycycline for pneumonia for total 7 days as well - Continue albuterol as needed - Encouraged weight loss - Follow-up blood cultures, sputum culture when available -Will need a two-step oxygen walk test prior to discharge from rehab #acute metabolic encephalopathy - -2nd to severe hypoxia and hypercapnia which is now resolved. Ammonia level, TSH, urine drug screen all normal. CT head negative for acute issue. Anaplasmosis and babesiosis smear negative, PCR pending - Supportive care, enceph resolved #Thrombocytopenia/Mild anemia-plts mildly low at 126-130s, stable from previous, baseline plts low normal; hgb mildly low at 12, normocytic. TSH normal. No abd imaging of spleen/liver but suspect fatty liver, may have HSM? Could be low plts from infection also. B12 level normal. Fe panel with transferrin sat 15% but serum Fe and TIBC normal-c/w chronic disease. Folate normal -follow CBC #morbid obesity, BMI ~40 -Needs weight loss #Prediabetes - -hemoglobin a1c 6.3% in August 2024 and remains at 6.2% -BSG checks and supplemental Novolog prn #elevated troponin - -likely myocardial demand ischemia in setting of his respiratory failure/pneumonia. He does have coronary artery calcifications on CT of the chest. Troponin peaked at 149. Echo without wall motion abnormalities-EKG without any ischemic changes and no reported ischemic symptoms at home. Tele with NSR, normal rates #proteinuria - -3+ protein on u/a -Follow-up as outpatient #smokeless tobacco use - -nicoderm patch 14mg/24hr -encourage cessation DVT proph - -lovenox 40mg daily Disposition- continued stay PCU, PT/OT consults recommend acute rehab-referral made to [facility]-awaiting bed, no insurance auth needed Admission and Anticipated Discharge Date Admission Date: November 18, 2024 Subjective Pt feels well, mild cough, no SOB. Is OOB to chair, eating, moved bowels. He tolerated the BiPAP overnight for 8 hours he thinks. Tele with NSR normal rates Physical Exam Constitutional: WD/WN, vitals as above + morbidly obese Neck: trachea midline, no thyromegaly + thick neck Respiratory: normal respiratory effort, lungs clear to auscultation (diminished throughout) Cardiovascular: Rate/Rhythm: regular rate and regular rhythm Heart Sounds: no murmur Extremities: no edema Chest (Breasts): Chest: normal inspection of chest Gastrointestinal (Abdomen): normal bowel sounds, soft, nontender, no hepatosplenomegaly Musculoskeletal: Extremities: extremities normal to inspection; no cyanosis and no clubbing Skin: no rashes, warm and dry Neurologic: moves all extremities and awake; no focal motor deficits Psychiatric: A+Ox3, euthymic affect Results & Data Results & Data Vital Signs (Past 12 Hours) Vital Signs Pulse Resp BP Pulse Ox O2 Del Method FiO2 11/21/24 10:15 75 30 H 95 11/21/24 08:03 83 33 H 91 11/21/24 08:00 74 11/21/24 07:28 150/75 H 11/21/24 07:21 84 26 H 91 11/21/24 07:03 77 27 H 91 11/21/24 03:10 75 18 160/80 H 94 BiPAP 21 11/21/24 02:10 76 22 93 25 Laboratory Results CBC, BMP, Fe studies, B12, folate reviewed Legionella urine ag neg; sputum and blood cxs reviewed-NGTD PG Care Time/CCT Total # of Minutes Spent Total Time Spent with Patient: Total time spent is greater than 50% in coordination of care (as documented) at patient's floor/unit and/or counseling patient: Coding Level of Care Code 81783 SUB INP/OBS CARE 2/35MIN Diagnoses Acute respiratory failure with hypoxia and hypercapnia J96.01; J96.02 Pneumonia J18.9 Acute metabolic encephalopathy G93.41 Morbid obesity E66.01
[2024-11-22 05:56] LABS: Basophils # (auto) 0.02 K/uL (0.00-0.20); Basophils % (auto) 0.4 %; Eosinophils # (auto) 0.05 K/uL (0.00-0.50); Eosinophils % (auto) 0.9 %; Hematocrit (blood only) 40.7 % (42.0-52.0); Hemoglobin 12.8 g/dl (14.0-18.0); Immature Granulocytes # (auto) 0.02 K/uL (0.01-0.20); Immature Granulocytes % (auto) 0.4 %; Lymphocytes # (auto) 0.98 K/uL (1.20-3.40); Lymphocytes % (auto) 18.4 %; Mean Corpuscular Hemoglobin 30.2 pg (25.0-34.0); Mean Corpuscular Hgb Conc 31.4 g/dL (32.0-36.0); Mean Platelet Volume 9.2 fL (9.4-12.4); Monocytes % (auto) 9.4 %; Neutrophils # (auto) 3.76 K/uL (1.40-6.50); Neutrophils % (auto) 70.5 %; Platelet Count 112 K/uL (130-400); RDW Coefficient of Variation 13.5 % (11.5-14.5); RDW Standard Deviation 46.7 fL (36.4-46.3); Red Blood Count 4.24 M/uL (4.70-6.10); White Blood Count 5.33 K/ul (4.8-10.8)
[2024-11-22 06:10] LABS: Albumin Globulin Ratio 1.5 (0.9-2); Albumin Level 3.8 gm/dl (3.4-5.0); BUN Creatinine Ratio 20.2 (10-20); Bilirubin,Total 0.6 mg/dl (0.2-1.0); Calcium 9.1 mg/dl (8.6-10.3); Creatinine Clr Calc Pharmacy 79.5 ml/min; Globulin 2.6 gm/dl (2.5-4.0); Magnesium 2.2 mg/dl (1.7-2.4); Potassium 4.1 mmol/L (3.5-5.1); Total Protein 6.4 gm/dl (6.0-8.3)
--- NOTE | 2024-11-22 08:34 | Discharge Summary ---
Discharge Summary Date of Service November 22, 2024 Principal Dx & Hospital Course #1 = Principal Diagnosis (1) Acute respiratory failure with hypoxia and hypercapnia: (2) Pneumonia: (3) Acute metabolic encephalopathy: (4) Morbid obesity: Plan This patient is a 69yo male with history of morbid obesity, pre-DM, and smokeless tobacco use who presents from his PCP's office with severely altered mental status, severe hypoxia and hypercapnia, and cough/dyspnea. He was transported by EMS to the hospital and upon arrival here his GCS was <7 and and PaCO2 was >135. He was subsequently intubated and transferred to the ICU. Diagnosed with pneumonia based on CT angiogram of chest. He is admitted with acute on likely chronic respiratory failure with hypercapnia and hypoxia and aspiration PNA. #Acute hypoxic & hypercapnic respiratory failure/pneumonia/restrictive lung disease -suspect he has baseline chronic hypercapnia from untreated/undiagnosed ANA/OHS; based on mother's history, seems to have developed moreso in just the last month or so. Suspect significant weight gain over the last year contributing to development of ANA/OHS. The acute respiratory failure likely wo rsened due to bilateral lower lobe pneumonia. There is no evidence of PE on CTA chest and no clinical or radiographic evidence of CHF. Respiratory BioFire negative. ABG now normalized and he is extubated to room air on 11/19. Echo with preserved LVEF 55-60%, mild TR, borderline concentric LVH, RVSP mildly elevated at 30-40 mmHg. Has elevated serum bicarbonate consistent with chronic CO2 retention. No risk factors for gram-negative pneumonia, no recent vomiting or dysphagia to suspect aspiration, but perhaps with altered MS, he aspirated. Now much improved, tolerating BiPAP qhs. CXR 11/20 clear. Legionella urine AG neg, blood cxs NGTD, and sputum cx negative. - continue BiPAP at nighttime and will arrange for home AVAPS-CM arranging, rx for this signed-settings as per PULM - Initially treated with Zosyn and then converted to Augmentin and finish out 7 more days; continue doxycycline for pneumonia for total 7 days as well - Continue albuterol as needed - Encouraged weight loss -Will need a two-step oxygen walk test prior to discharge from rehab #acute metabolic encephalopathy - -2nd to severe hypoxia and hypercapnia which is now resolved. Ammonia level, TSH, urine drug screen all normal. CT head negative for acute issue. Anaplasmosis and babesiosis smear negative, PCR pending - Supportive care, enceph resolved #Thrombocytopenia/Mild anemia-plts mildly low at 126-130s, stable from previous, baseline plts low normal; hgb mildly low at 12, normocytic. TSH normal. No abd imaging of spleen/liver but suspect fatty liver, may have HSM? Could be low plts from infection also. B12 level normal. Fe panel with transferrin sat 15% but serum Fe and TIBC normal-c/w chronic disease. Folate normal -follow CBC as outpt #morbid obesity, BMI ~40 -Needs weight loss #Prediabetes - -hemoglobin a1c 6.3% in August 2024 and remains at 6.2% -BSG checks and supplemental Novolog prn were given but not needed on discharge -encourage low carb diet and weight loss #elevated troponin - -likely myocardial demand ischemia in setting of his respiratory failure/pneumonia. He does have coronary artery calcifications on CT of the chest. Troponin peaked at 149. Echo without wall motion abnormalities-EKG without any ischemic changes and no reported ischemic symptoms at home. Tele with NSR, normal rates throughout hospital stay #proteinuria - -3+ protein on u/a -Follow-up as outpatient #smokeless tobacco use - -nicoderm patch 14mg/24hr -encourage cessation DVT proph - -lovenox 40mg daily given Disposition- dc to acute rehab- [facility] Admission HPI Per Admitting Provider 69yo male with history of morbid obesity, pre-DM, and smokeless tobacco use who presents from his PCP's office with severely altered mental status, severe hypoxia (conflicting reports but O2 sats were as low as 37%-50% range), and cough/dyspnea. Amazingly he was able to ambulate into his PCP's office this morning. EMS was summoned to the [facility] offices when the severe hypoxia was found. EMS placed him on 100% nonrebreather mask and transported him to our ER. Upon arrival here his GCS was <7 and and PCO2 on ABG was >135. He was subsequently intubated by the ER attending, Dr Singh. During my admission assessment the patient's mother was at bedside. The patient lives with his mother in the [facility]. Initially she told me he had had a cough for just a few days, but the written record mentions up to 2 weeks of cough. He has had dyspnea. His mother's main observation over the last month is that of him falling asleep easily. In fact they were at a a few weeks back and he fell asleep during the service. He has been sleeping excessively both day and night. When he is awake he has tendencies to fall asleep quickly. Pt's mother denies any recent fevers, headaches, vomiting, diarrhea, chest pain, abd pain, LE edema, tick bites (although [place] and [place] does go out into the [place] at times). He is not on oxygen or CPAP/BIPAP at home. Appetite has been normal per his mother. He does not use cigarettes. Discharge Exam Constitutional WD/WN, vitals as above + morbidly obese Neck trachea midline, no thyromegaly + thick neck Respiratory normal respiratory effort, lungs clear to auscultation (diminished throughout) Cardiovascular Rate/Rhythm: regular rate and regular rhythm Heart Sounds: no murmur Extremities: no edema Chest (Breasts) Chest: normal inspection of chest Gastrointestinal (Abdomen) normal bowel sounds, soft, nontender, no hepatosplenomegaly Musculoskeletal Extremities: extremities normal to inspection; no cyanosis and no clubbing Skin no rashes, warm and dry Neurologic moves all extremities and awake; no focal motor deficits Psychiatric A+Ox3, euthymic affect Discharge Plan Discharge Items Patient Disposition: Transfer Inpatient Rehab Fac Reason For Visit: ACUTE HYPOXIC/HYPERCAPNIC RESPIRATORY FAILURE Discharge Diagnosis: Acute and chronic respiratory failure with hypoxia and hypercapnia, ventilator dependent respiratory failure Pneumonia Restrictive lung disease Thrombocytopenia Condition on Discharge: Good Activity: As commented below Lifting: Gradually increase as tolerated Bathing: No limitations Exercise/Sports: Gradually increase as tolerated Non-emergency contact: Primary Care Provider and [employer] Call non-emergency contact if: you have any medication questions and your symptoms worsen Follow-up/Referrals: Liana Wick MD, FCCP [Physician] - (Follow-up with pulmonology and/or sleep medicine after discharge) Kenton Nevarez DO [Primary Care Provider] - (Follow-up within 2 weeks after discharge from rehab) Diet: Carb Consistent or DM2 and Heart Healthy Addtl Attending Provider Instructions: You were admitted with respiratory failure requiring intubation and mechanical ventilation. This was due to low oxygen levels and very high carbon dioxide levels from restrictive lung disease and obesity hypoventilation syndrome. It is recommended that you work on losing weight to improve this problem. He will also be started on a noninvasive ventilator by facemask to be worn every night and when you take naps. Please finish out 3 more days of the antibiotics for your pneumonia. Your platelet count is mildly low. This could be due to issues with your liver or spleen related to obesity. Please follow-up with your primary care physician on this after discharge and follow your complete blood count periodically. Pending Studies at Discharge: Yes (Final blood cultures-remain no growth to date) Stand-Alone Forms: My [facility] Skilled Items Patient informed of condition?: Yes DNR: No Discharge Level of Care: Acute rehab Communicable Disease: No Discharge Prognosis: Improving Lines: None Urinary Catheter: No Medications and DC Order Prescriptions: New doxycycline hyclate 100 mg Capsule 100 mg PO BID Qty: 5 0RF ipratropium-albuterol 0.5 mg-3 mg(2.5 mg base)/3 mL Solution For Nebulization 3 ml inhalation Q4H PRN (Reason: shortness of breath) Qty: 90 0RF amoxicillin-pot clavulanate 875-125 mg Tablet 1 tab PO BID Qty: 5 0RF acetaminophen [Tylenol Extra Strength] 500 mg Tablet 1,000 mg PO Q8H PRN (Reason: pain) Qty: 30 0RF nicotine 7 mg/24 hr Patch 24 Hour 1 patch transdermal QAM Qty: 30 0RF No Action No Known Home Medications Discharge Orders: Discharge Order (Routine); Ordered 11/22/24 Ordered By: Stephanie Rosen/Other Patient Handouts: Prediabetes, 5 Steps for Eating Healthier Admission Data Admit Date/Time: 11/18/24 10:50 Attending Provider: Stephanie Cano Admit Provider: Kirk Gray Primary Care Provider: Kenton Nevarez Other Providers: Kirk Gray; Liana Wick; [facility] Stay Data Consultations 11/18/24 09:59 ED Decision to Admit Stat 11/18/24 12:45 Consult [employer] Press Set Up Operator Routine Diagnostic Imagining Performed 11/18/24 08:02 CT head/brain wo con Stat 11/18/24 08:20 CT angio chest PE protocol Stat ECHO Pending Results Patient Have Any Pending Studies at Discharge: Yes (Final blood cultures-remain no growth to date) Discharge Instructions Given to Patient (Per Discharging Provider) You were admitted with respiratory failure requiring intubation and mechanical ventilation. This was due to low oxygen levels and very high carbon dioxide levels from restrictive lung disease and obesity hypoventilation syndrome. It is recommended that you work on losing weight to improve this problem. He will also be started on a noninvasive ventilator by facemask to be worn every night and when you take naps. Please finish out 3 more days of the antibiotics for your pneumonia. Your platelet count is mildly low. This could be due to issues with your liver or spleen related to obesity. Please follow-up with your primary care physician on this after discharge and follow your complete blood count periodically. Total Time Total Time Spent Total Time Spent (In Minutes): 35 min Total Time Includes: Examination of the Patient, Discharge Planning and Medication Reconciliation Coding Level of Care Code 01530 INP/OBS DISCH >30 MIN Diagnoses Acute respiratory failure with hypoxia and hypercapnia J96.01; J96.02 Pneumonia J18.9 Acute metabolic encephalopathy G93.41 Morbid obesity E66.01
== END 2024-11-22 15:11 ==
LOC: ED 07:52 → 1E 10:50 → SUATTDRO 10:50 → 1E 11:31 → 4W 11-21 22:43